=== PATIENT | male | born 1940 | race Caucasian/White ===

== ENCOUNTER → 2024-10-13 08:11 | Outpatient (REF) | payer MEDICARE, BC, SELFPAY ==
--- NOTE | 2024-10-13 09:00 | CARDSERVLU ---
Echocardiogram with [facility] completed after protocol screening completed. Allergies verified.
Patent IV site: ____Left AC_
IV site flushed with 0.9% NaCl pre and post administration.
Diluted bolus method utilized to enhance visualization of ventricular gonzalez.
Total volume given: _2.0__ mL
Patient tolerated all procedures well without complications.
== END ==
LOC: RCS 08:11
PROVIDERS: ATTENDING PHYSICIAN Nurse Practitioner
DX: R06.02 Shortness of breath (principal)
CPT/HCPCS: 93306; Q9950

== ENCOUNTER → 2024-10-15 06:51 | Outpatient (REF) | payer MEDICARE, BC, SELFPAY ==
[2024-10-15 07:30] VITALS: BP 101/66; BP_SYST 90
[2024-10-15 08:00] VITALS: BP 118/73; BP_SYST 89
[2024-10-15 08:35] LABS: Body Fluid pH 7.17
[2024-10-15 08:37] VITALS: BP 118/73
[2024-10-15 09:05] LABS: Body Fluid Polymorphonuclear 10.9 %; Body Fluid WBC 1342 /CUMM
[2024-10-15 09:06] LABS: Body Fluid Mononuclear 89.1 %
[2024-10-15 09:07] LABS: Body Fluid Second Tech EM
[2024-10-15 12:46] LABS: Body Fluid Glucose 86 mg/dl; Body Fluid Protein 3.5 g/dl
[2024-10-15 12:47] LABS: Body Fluid LDH 300 U/L
== END ==
LOC: RADI 06:51
PROVIDERS: ATTENDING PHYSICIAN Internal Medicine; REFERRING PHYSICIAN Internal Medicine
DX: J90 Pleural effusion, not elsewhere classified (principal)
CPT/HCPCS: 88305; 32555; 71045; 82945; 83615; 83986; 84157; 87015; 87070; 87102; 87116; 87205; 87206; 88112; 89051

== ENCOUNTER → 2024-10-22 10:27 | Outpatient (REF) | payer MEDICARE, BC, SELFPAY | LOC: HWRAD 10:27 | PROVIDERS: ATTENDING PHYSICIAN Internal Medicine; FAMILY PHYSICIAN Internal Medicine; REFERRING PHYSICIAN Internal Medicine | DX: J90 Pleural effusion, not elsewhere classified (principal) | CPT/HCPCS: 71250 ==

== ENCOUNTER 2024-10-24 12:03 | Inpatient (IN) | payer MEDICARE, BC, SELFPAY ==
[2024-10-24] VITALS (16 sets, daily range): BP systolic 80–140; BP diastolic 62–92; BMI 25.6; BMI 25.1
--- NOTE | 2024-10-24 08:41 | ED.GENMED ---
History of Present Illness
General
Chief Complaint: Breathing Problem
Source: patient
Exam Limitations: none
Time Seen by Provider: 10/24/24 08:24
Nursing documentation reviewed up to this point in time: agreed with
History of Present Illness
History of Present Illness:
Note:
CHIEF COMPLAINT(S)
Shortness of breath
HISTORY OF PRESENT ILLNESS
An 84-year-old male presents with shortness of breath. The patient underwent a thoracentesis approximately one week prior, during which fluid was aspirated from the left pleural space. A follow-up CT scan was performed two days ago as part of a
reassessment plan. According to the recent contact from the physician, there is evidence of infection in the aspirated fluid. The patient is experiencing a productive cough and dyspnea on exertion. He reports no recent fevers. Hospital admission is
planned for further drainage of the pleural fluid and initiation of antibiotic therapy.
SOCIAL HISTORY
The patient reports a history of smoking but has since quit. He denies current alcohol consumption, having ceased since his bypass surgery.
MEDICATIONS
- Metformin
- Losartan
- Furosemide
- Amlodipine
- Jcdzrcejmqdj-ncjvkoqgrt-qxvfjvymqsi (administered via inhalation)
PLAN
- Admit the patient to the hospital for chest tube placement for drainage of pleural effusion.
- Obtain blood tests to evaluate infection and overall health status.
DIFFERENTIAL DIAGNOSIS
The Differential Diagnosis includes, in no particular order and is not limited to:
- Pleural effusion
- Pneumonia
- Congestive heart failure
- Pulmonary embolism
- Chronic obstructive pulmonary disease exacerbation
- Lung cancer
- Empyema
- Tuberculosis
- Interstitial lung disease
- Acute respiratory distress syndrome
Note:
CARE-UPDATE
10/24/24 - 09:02
Awaiting pleural fluid studies before starting antibiotics as per pulmonology recommendation. Interventional radiology to place chest tube for fluid collection, and pleural fluid studies ordered. Hospitalists will proceed with admission.
Disposition:
ASSESSMENT
Shortness of breath likely due to pleural effusion with suspected infection.
PLAN
Admit the patient to the hospital for further evaluation and management, including chest tube placement and initiation of antibiotic therapy. Obtain blood tests to evaluate for infection and assess overall health status.
MEDICATION RECONCILIATION
Current medications include Metformin, Losartan, Furosemide, Amlodipine, and inhaled Zgoatfzqrvjd-nmdgbtqpoc-jxjjewlbnbv.
MEDICAL DECISION MAKING
1. Number & Complexity of Problems: Chronic conditions affecting care include pleural effusion, past smoking history, and recent thoracentesis. Differential diagnoses considered are pneumonia, congestive heart failure, pulmonary embolism, chronic
obstructive pulmonary disease exacerbation, lung cancer, empyema, tuberculosis, interstitial lung disease, and acute respiratory distress syndrome.
2. Data Reviewed: Relevant imaging and lab tests were performed, including a CT scan and pleural fluid studies. Awaiting pleural fluid study results before initiating antibiotics as per pulmonology recommendations.
3. Risk: Consideration of hospital admission due to complexity and risk of infection associated with pleural effusion.
PATHOLOGIES TO CONSIDER
- Empyema
- Pulmonary embolism
- Congestive heart failure
- Lung cancer
- Acute respiratory distress syndrome
Past History
Past History
ED Past Medical History: Arrthythmia, CAD, HTN, Hypercholesterolemia and NIDDM
ED Past Surgical History: Cardiac
Phy Exam
Physical Exam
Physical Exam:
Physical Exam
General: no apparent distress, not acutely ill
Neck: supple. no meningeal signs. normal posterior pharynx
Heart: s1/s2 regular rate and rhythm, no murmur. equal radial
pulses.
HEENT: Pupils equal round reactive to light, EOMI
Lungs: no acute respiratory distress. Rhonchi bilaterally
Abdomen: normal bowel sounds. not tender. no CVAT
Neuro: alert and oriented. no focal neurological deficits cranial nerves II through XII intact
Skin: no rash
Psychiatric: well kept. interactive and cooperative
Extremities: no edema. no calf tenderness. negative homans. good distal pulses
Scores
Heart Failure Risk
Heart Failure Risk Score: Not Applicable
Course
Orders/Labs/Results
Orders:
Orders
10/24/24 08:33
Cardiac Monitoring- Treatment ONCE
IV Insert/Care/Rem.- Treatment PRN
Pulse Ox/cont/shift [RESP] Stat
Quantity: 1
10/24/24 08:51
Complete Blood Count/With Diff Urgent
Comprehensive Metabolic Panel Urgent
Lactic Acid Q4H
Comment: CANCEL 2nd LACTIC ACID IF 1st LACTIC ACID IS LESS THAN 2
Blood Culture Q30M
LAYLA Source: Blood/Venous
Specimen Description:
10/24/24 08:56
Body Fluid Cell Count Routine
What is the Body Fluid: pleural fluid
Comment: post procedure
Body Fluid LDH Routine
Fluid Source: Pleural
Body Fluid pH Routine
Fluid Source: Pleural
10/24/24 08:57
Body Fluid Glucose Routine
Fluid Source: Pleural
Body Fluid Protein Routine
Fluid Source: Pleural
10/24/24 08:58
Acid Fast Culture & Smear Routine
LAYLA Source: Pleural Fluid
Specimen Description:
Comment: post procedure
Fluid Culture with Gram Stain Routine
LAYLA Source: Pleural Fluid
Specimen Description:
Comment: post procedure
Fungus Culture Routine
LAYLA Source: Pleural Fluid
Specimen Description:
Fungus Smear Routine
LAYLA Source: Pleural Fluid
Specimen Description:
Gram Stain Routine
LAYLA Source: Pleural Fluid
Specimen Description:
Comment: POST PROCEDURE
10/24/24 09:14
Consult Interventional Radiology [IRAD CONSULT] Urgent
Consulting Provider: Pawan Jett
Was physician already notified: Yes
Procedure being ordered, including laterality if applicable: left side thoracentesis
Acknowledgement that appropriate orders are entered: Yes
10/24/24 09:55
IRAD CONSULT Routine
Consulting Provider: Pawan Jett
Was physician already notified: Yes
Procedure being ordered, including laterality if applicable: Left sided chest tube and tPA/DNAse
Acknowledgement that appropriate orders are entered: Yes
10/24/24 09:56
IRAD Cytology Routine
Source: Pleural Fluid, Left
Clinical Impression: Idiopathic effusion
10/24/24 11:33
Code Status As Directed
Resuscitation Status: Full Code
Docusate W/Senna [Senokot-S] 1 tablet PO BIDPRN PRN
Polyethylene Glycol Powder [Miralax] 17 grams PO DAILYPRN PRN
Activity As Directed
Activity Level: As Tolerated
Vital Signs As Directed
Frequency: Per unit guidelines
10/24/24 11:34
Pneumatic Compression Sleeves As Directed
Type: Knee high
DX Deep Vein Thrombosis Video Routine
10/24/24 11:41
NT-proBNP Urgent
Blood Culture Q30M
LAYLA Source: Blood/Venous
Specimen Description:
10/24/24 11:42
Admit/Transfer Patient As Directed
Co-Sign Provider:
Level of Care: Inpatient admission
Assign to:: Medical/Surgical
Physician / Group: Hospitalist: Storm
Diagnosis: Left empyema
Reason for Hospitalization: Left empyema
Expected length of stay greater than two midnights?: Yes
ELOS- Estimated Length of Stay in days: 2
I certify the patient meets the requirements for IP care: Yes
10/24/24 11:43
PRN Pain Medication Management As Directed
May give lesser potent ordered pain med per pt: Yes
preference::
Protocol:: Medication orders for pain may be administered in a
manner that supports deferring to patient preference
when the pt is:
- Requesting an ordered lesser potent pain medication.
Least to most potent pain medications are defined
as: acetaminophen < NSAID < tramadol < opioids
(morphine, oxycodone, hydromorphone).
- Requesting a lesser dose of the same medication IF
ORDERED.
- Requesting a less intrusive route of administration
if both routes are prescribed by the provider (PO <
IV).
10/24/24 11:46
PULMONARY CONSULT Routine
Consulting Provider: Vincenzo Bermudez
Was physician already notified: Yes
Reason for consult: L empyema
10/24/24 11:47
Ot Eval And Treat Routine
Pt Eval And Treat Routine
Activity Level: As Tolerated
10/24/24 Dinner
Cholesterol Lowering
Cholesterol Lowering: Sodium, 2 Gram
10/24/24 16:00
Gabapentin [Neurontin] 100 mg PO TID
10/25/24 06:00
BMP [Basic Metabolic Panel] IN AM
CBC/With Diff [Complete Blood Count/With Diff] IN AM
10/26/24 06:00
BMP [Basic Metabolic Panel] IN AM
CBC/With Diff [Complete Blood Count/With Diff] IN AM
10/27/24 06:00
BMP [Basic Metabolic Panel] IN AM
CBC/With Diff [Complete Blood Count/With Diff] IN AM
Abnormal Lab Results
10/24/24
08:51
RBC 4.50 L 10^6/uL
(4.70-6.10)
Hgb 12.8 L g/dL
(13.0-18.0)
MCHC 32.7 L g/dL
(33.0-37.0)
RDW 15.9 H %
(11.5-14.5)
Lymphocytes % 18.7 L %
(20.5-51.1)
Glucose 162 H mg/dl
(70-99)
10/24/24 08:51
10/24/24 08:51
Vital Signs
Initial and Last Documented VS:
Initial Vital Signs
Temp Pulse Resp BP Pulse Ox
97.6 F 93 24 116/66 97
10/24/24 08:19 10/24/24 08:19 10/24/24 08:19 10/24/24 08:19 10/24/24 08:19
Last Documented Vital Signs
Temp Pulse Resp BP Pulse Ox
97.7 F 90 21 119/79 98
10/24/24 12:55 10/24/24 12:55 10/24/24 12:55 10/24/24 12:55 10/24/24 12:55
*Pulse Oximetry
SaO2: 97
Oxygen Mode of Delivery: Room air
Patient hypoxic: no
*Critical Care Note
Total Time (30-74mins, 75-104mins- exclusive of procedures): Not Applicable
ED Attending Note
-
Portions of this chart may have been created with voice recognition software.� Occasional wrong word or��sound alike� substitutions may have occurred due to the inherent limitations of voice recognition software.
Discharge Plan
Departure
Patient Disposition: Admit
Date of Disposition: 10/24/24
Time of Disposition: 10:29
Admit to: Telemetry
Presentation/result/management discussed w/ accepting MD/DO: Hospitalist
Patient with high blood pressure during this ER visit?: No
Condition: Good
Discharge Problem:
Pleural effusion on left
Interventions
Interventions:
*Risk Screen - Suicide Last Done: 10/24/24 08:19
*General Assessment Last Done: 10/24/24 09:00
*Neglect/Abuse Screening Last Done: 10/24/24 08:19
*ED- Fall Risk Assessment Last Done: 10/24/24 09:00
*ED COVID-19 Vaccine History Last Done: 10/24/24 09:00
[2024-10-24 09:07] LABS: % Basophils 1.2 % (0-2); % Eosinophils 1.7 % (0-6); % Immature Granulocytes 0.4 % (0-0.5); % Lymphocytes 18.7 % (20.5-51.1); % Monocytes 6.7 % (1.7-9.3); % Neutrophils 71.3 % (42.2-75.2); Absolute Basophils 0.1 10^3/uL (0-0.2); Absolute Eosinophils 0.1 10^3/uL (0-0.7); Absolute Lymphocytes 1.5 10^3/uL (1.2-3.4); Absolute Monocytes 0.5 10^3/uL (0.1-0.6); Absolute Neutrophils 5.6 10^3/uL (1.4-6.5); Hematocrit 39.1 % (39.0-52.0); Hemoglobin 12.8 g/dL (13.0-18.0); Mean Corp Hgb Conc. 32.7 g/dL (33.0-37.0); Mean Corpuscular Hgb 28.4 pg (27.0-31.0); Mean Corpuscular Volume 86.9 fL (80.0-94.0); Mean Platelet Volume 8.8 fL (7.4-10.4); Nucleated Red Blood Cells % 0 % (-); Platelet Count 353 10^3/uL (130-400); Red Cell Dist. Width 15.9 % (11.5-14.5); White Blood Cell Count 7.8 10^3/uL (4.8-10.8)
[2024-10-24 09:19] LABS: Lactic Acid 1.7 mmol/L (0.7-2.0)
[2024-10-24 09:21] LABS: ALT (SGPT) 15 U/L (0-50); AST (SGOT) 17 U/L (17-59); Albumin 4.1 g/dl (3.5-5.0); Alkaline Phosphatase 75 U/L (38-126); Blood Urea Nitrogen 18 mg/dl (9-20); Calcium 9.1 mg/dl (8.4-10.2); Carbon Dioxide 27 mmol/L (22-30); Chloride 103 mmol/L (98-107); Estimated Creatinine Clearance 79 ml/min; Glucose 162 mg/dl (70-99); Potassium 4.7 mmol/L (3.5-5.1); Sodium 138 mmol/L (135-145); Total Bilirubin 0.8 mg/dl (0.2-1.3); Total Protein 7.6 g/dl (6.3-8.2); eGFR > 60.00
--- NOTE | 2024-10-24 11:49 | HPS.HSE ---
Family Physician
-
Family Physician: Linn Walsh
Chief Complaint
-
Shortness of breath
History of Present Illness
Mr. Mckenzie is an 84-year-old male with a medical history of COPD (last PFT at [facility] in February 2024 showed severe obstruction and moderately severe restriction), CAD (status post CABG x4 on 08/25/22), pericardial effusion (after CABG,
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
arrhythmia (patient wore Holter monitor for a week, A-fib?, not on anticoagulation) who presents now with ongoing shortness of breath worse with exertion. He had a recent thoracentesis for recurrent left lower effusion on 10/15/2024. Repeat CT
imaging in the outpatient setting on 10/22 showed small to moderate left partially loculated pleural effusions with some concern for infection. He has no new symptoms other than his ongoing shortness of breath. Denies fevers, headaches,
palpitations, abdominal pain, nausea or vomiting. He was sent to the emergency department for further evaluation and management.
In the ED, he has remained hemodynamically stable. Remains afebrile and without leukocytosis. He is breathing comfortably and saturating appropriately on room air at rest. Labs are generally unremarkable. He has been admitted for treatment of
possible empyema.
Medical History
Past Medical History
Past Medical History: Reports Other
Additional Past Medical History:
COPD (last PFT at [facility] in February 2024 showed severe obstruction and moderately severe restriction), CAD (status post CABG x4 on 08/25/22), pericardial effusion (after CABG, resolved after pericardiocentesis), chronic heart failure
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
not on anticoagulation)
Past Surgical History: Reports Other
Additional Past Surgical History:
CABG x 4 on 08/25/2022, pericardiocentesis
Social History
Tobacco: Former Smoker (3035 pack years, quit 1989)
Alcohol: Occasional
Drug: None
Personal:
Living: With Family
Family History
Family History: Not pertinent
Allergies / Home Medications
Allergies reflects when Allergies were last updated in [facility].
Home Medications with original date entered in [facility]
Allergy/Medication List:
Allergies
Allergy/AdvReac Type Severity Reaction Status Date / Time
Sulfa (Sulfonamide Allergy childhood-u Verified 10/24/24 08:18
Antibiotics) nknown
Home Medications
finasteride 5 mg tablet 5 mg PO DAILY Urinary issue #30 tabs 09/01/22
aspirin 81 mg tablet,delayed release 81 mg PO DAILY Blood Clot Prevention/Tx 10/15/24
cyanocobalamin (vitamin B-12) 1,000 mcg tablet (Vitamin B-12) 1,000 mcg PO DAILY Supplement 10/15/24
fluticasone fur. 100 mcg-umeclid 62.5 mcg-vilant 25 mcg inhalat.powder (Trelegy Ellipta) 1 inh inhalation R DAILY Lung/Breathing Issues 10/15/24
atorvastatin 40 mg tablet 40 mg PO QPM High Cholesterol 10/24/24
furosemide 40 mg tablet 40 mg PO Q48H Fluid Retention/Swelling 10/24/24
metformin 500 mg tablet 500 mg PO BID@0800,1700 Diabetes 10/24/24
Review of Systems
-
History Source: Patient
A 12 point ROS was completed and negative except as noted: Yes
Respiratory: Reports Cough and Other (Dyspnea on exertion)
Neurological: Reports Other (Bilateral lower extremity neuropathy)
Physical Exam
Vital Signs
Vital Signs
Temp Pulse Resp BP Pulse Ox
97.6 F 78 18 107/62 97
10/24/24 08:19 10/24/24 09:30 10/24/24 09:01 10/24/24 09:00 10/24/24 09:30
Physical Exam
General: No Apparent Distress
Laboratory Results
-
10/24/24 08:51
10/24/24 08:51
Laboratory Results
Lactic Acid Cancelled 10/24/24 12:45
Total Bilirubin 0.8 mg/dl (0.2-1.3) 10/24/24 08:51
AST 17 U/L (17-59) 10/24/24 08:51
ALT 15 U/L (0-50) 10/24/24 08:51
Alkaline Phosphatase 75 U/L (38-126) 10/24/24 08:51
Impression/Plan
-
General: No Apparent Distress, Comfortable and Conversant
HEENT: NormoCephalic, Moist mucous membranes, Atraumatic
Respiratory: Non Labored Respirations, decreased breath sounds left base
Cardiac: S1/S2 and Regular Rhythm; No Rub or Gallop
GI: Soft, Non Tender, Non Distended and Normal Bowel Sounds
Musculoskeletal: No Edema, no deformity
Skin: Warm and dry
: NO Friedman
Neuro: Awake, Alert, Nonfocal/grossly intact
Psych: Calm and Intact Judgment/Insight
Mr. Mckenzie is an 84-year-old male with a medical history of COPD (last PFT at [facility] in February 2024 showed severe obstruction and moderately severe restriction), CAD (status post CABG x4 on 08/25/22), pericardial effusion (after CABG,
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
arrhythmia (patient wore Holter monitor for a week, A-fib?, not on anticoagulation) who presents now with ongoing shortness of breath worse with exertion. He had a recent thoracentesis for recurrent left lower effusion on 10/15/2024. Repeat CT
imaging in the outpatient setting on 10/22 showed small to moderate left partially loculated pleural effusions with some concern for infection. He has no new symptoms other than his ongoing shortness of breath. Denies fevers, headaches,
palpitations, abdominal pain, nausea or vomiting. He was sent to the emergency department for further evaluation and management.
In the ED, he has remained hemodynamically stable. Remains afebrile and without leukocytosis. He is breathing comfortably and saturating appropriately on room air at rest. Labs are generally unremarkable. He has been admitted for treatment of
possible empyema.
Loculated left pleural effusions:
- Suspect empyema
- Tentative plan for IR pleural drain placement, will hold off on antibiotics until fluid has been collected
- Pulmonology consult
- Currently not requiring oxygen, breathing comfortably on room air at rest
COPD:
- Currently without exacerbation
- Reportedly previous PFTs in February 2024 showed severe obstruction and moderately severe restriction
- Continue scheduled inhalers with additional as needed
Lower extremity neuropathy:
- Bilateral, never treated
- Suspect secondary to his diabetes
- Will start low-dose gabapentin and monitor
NIDDM:
- On metformin 500 mg p.o. twice daily at home which we will continue
- Check hemoglobin A1c
- Suspect his reported neuropathy is related to his diabetes
CAD:
- History of CABG x 4 on 08/25/2022, postoperative pericardial effusion status post pericardiocentesis
- Currently stable
- Will resume daily aspirin after thoracentesis/drain placement continue high intensity statin
CHF:
- Currently compensated
- Appears to be preserved ejection fraction per echocardiograms in chart
- Continue Lasix 40 mg p.o. every 48 hours which is his outpatient regimen
- Does not appear to be on a beta-alethea or afterload reduction
- Follows with Dr. Mariscal at [facility] cardiology
DVT prophylaxis: SCDs
CODE STATUS: Full code
Total time spent on today's encounter was 60 minutes
--- NOTE | 2024-10-24 12:25 | CM ---
CM reviewed chart and met with pt bedside in ED. Currently lives with his at their daughter's home, multistory home, [address]. Pt and are in the process of moving to [facility] [place] apt[place]
Independent at baseline for ADLs, personal care and ambulation. Uses single point cane for ambulation, also has rollator.
No hx VN, has been to [facility] for STR.
PCP: Linn Walsh
Pharmacy: Will use [facility] at [facility].
Discharge plan: Anticipate home pending ongoing medical evaluation.
[2024-10-24 12:37] LABS: NT-proBNP 431 pg/ml
--- NOTE | 2024-10-24 14:35 | W.PN.UPDATE ---
Update Note
Progress Note Update
-14F left chest tube placed using US and fluoro.
-Dark bloody fluid aspirated, not overtly purulent or turbid in appearance. Given bloody nature of the fluid, pleural lysis not performed today. Will monitor output, check CXR in the am.
--- NOTE | 2024-10-24 14:49 | CON.PUL ---
Consultation
Consultation Request
Date/Time Consultation Requested: 10/24/2024
Date/Time Consultation Performed: 10/24/2024
Requesting Provider: Orlando Campos
Performing Provider: Vincenzo Bermudez
Reason for Consultation: Pleural effusion
Medical History
-
Chief Complaint: Shortness of breath
History of Present Illness:
Patient is a very pleasant 84-year-old gentleman who presents to emergency room after being referred from pulmonary clinic for concern of empyema. Patient had coronary artery bypass graft performed in 08/[address] scan from postop time showed a
trace right-sided and moderate left-sided pleural effusion. Over the last year patient has experienced increased exertional dyspnea and in [place] was noted to have left-sided pleural effusion and had a thoracentesis performed. Patient reports
about 800 mL of fluid was removed it led to significant discomfort and pain postprocedure requiring overnight stay. He transitioned his care to [place] and was seen at [facility] recently. Patient was sent for a follow-up thoracentesis for fluid
analysis and had about 900 mL bloody fluid removed on 10/15. Cytology and culture stayed negative. Patient had a follow-up CT scan after procedure which showed some air in the pleural space as well as loculated effusions with pleural thickening
concerning for infection. Patient was referred to emergency room for further evaluation. Pulmonary consultation was requested for further input.
Patient denies any fever, chills, cough or expectoration. Noted to have normal WBC count and afebrile along with hemodynamic stability.
Past Medical History
Past Medical History: Reports Other
Additional Past Medical History:
COPD (last PFT at [facility] in February 2024 showed severe obstruction and moderately severe restriction), CAD (status post CABG x4 on 08/25/22), pericardial effusion (after CABG, resolved after pericardiocentesis), chronic heart failure
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
not on anticoagulation)
Past Surgical History: Reports Other
Additional Past Surgical History:
CABG x 4 on 08/25/2022, pericardiocentesis
Social History
Tobacco: Former Smoker (3035 pack years, quit 1989)
Alcohol: Occasional
Drug: None
Personal:
Living: With Family
Family History
Family History: Not pertinent
Allergies / Home Medications
Allergies reflects when Allergies were last updated in [facility].
Allergies / Home Medications
Allergies
Allergy/AdvReac Type Severity Reaction Status Date / Time
Sulfa (Sulfonamide Allergy childhood-u Verified 10/24/24 08:18
Antibiotics) nknown
Home Medications
�Medication �Instructions �Recorded �Confirmed �Last Taken �Type
finasteride 5 mg tablet 5 mg PO DAILY Urinary issue #30 09/01/22 10/24/24 10/24/24 Rx
tabs
aspirin 81 mg tablet,delayed 81 mg PO DAILY Blood Clot 10/15/24 10/24/24 10/24/24 History
release Prevention/Tx
cyanocobalamin (vitamin B-12) 1,000 mcg PO DAILY Supplement 10/15/24 10/24/24 10/24/24 History
1,000 mcg tablet (Vitamin B-12)
fluticasone fur. 100 mcg-umeclid 1 inh inhalation R DAILY 10/15/24 10/24/24 10/24/24 History
62.5 mcg-vilant 25 mcg Lung/Breathing Issues
inhalat.powder (Trelegy Ellipta)
atorvastatin 40 mg tablet 40 mg PO QPM High Cholesterol 10/24/24 10/24/24 10/23/24 History
furosemide 40 mg tablet 40 mg PO Q48H Fluid 10/24/24 10/24/24 10/24/24 History
Retention/Swelling
metformin 500 mg tablet 500 mg PO BID@0800,1700 Diabetes 10/24/24 10/24/24 10/24/24 History
Review of Systems
-
Hematologic/Lymphatic: Other (All 14 systems reviewed and negative except as stated above in the history of present illness.)
Vitals / Labs / Diagnostic Testing
Vital Signs
Temp Pulse Resp BP Pulse Ox
98.1 F 82 19 126/77 97
10/24/24 14:10 10/24/24 14:43 10/24/24 14:43 10/24/24 14:43 10/24/24 14:40
Lab Data
10/24/24 08:51
10/24/24 08:51
Diagnostic Testing:
Physical Exam
-
HEENT: Normocephalic
Cardiovascular: S1/S2
Respiratory: Clear and Other (Few rhonchi in the left lower lobe.)
GI: Soft and Non Distended
Neurology: Awake and Alert
Skin: Warm
General: Comfortable
Assessment
-
#1. Complex loculated left-sided pleural effusion with pleural thickening.
- Considering gas noted within the left pleural collection, concern for empyema, however with trapped lung, might have air due to ex-vacuo or related to recent instrumentation
- Pleural thickening noted, patient might have some degree of underlying trapped lung since 08/2022 when patient had CABG. Review of prior CT scan from 08/2022 suggests a trace right and moderate left-sided pleural effusion post CABG. Presence of
pain after first thoracentesis also points were possible lung entrapment.
- Discussed with IR service, plan for left-sided chest tube placement and initiation of tPA/DNase in view of loculations unless pleural fluid noted to be particularly bloody. Send pleural fluid for LDH, protein, Gram stain and culture sensitivity
including pH and glucose.
- Further recommendations post chest tube placement and after analysis of pleural fluid
- Draw blood cultures, initiate antibiotics after pleural fluid sampling, IV Unasyn
- Patient is afebrile, has normal WBC count. Will follow-up on pleural fluid and blood cultures. The small amount of air noted might be related to recent instrumentation, possible pneumo ex vacuo with trapped physiology rather than active
infection. If all cultures stay negative, will favor discontinuing antibiotic and monitor.
- Follow-up chest x-ray in a.m.
#2. H/o COPD, severe obstruction with moderate diffusion deficit
- Patient quit smoking 35 years ago.
- Currently uses Trelegy at home with as needed albuterol. Patient reports rare use of albuterol since he has started Trelegy.
#3. H/o CHF
- Clinically appears euvolemic, does not appear to to be decompensated
- BNP near normal
- Continue Lasix
#4. Dyspnea with exertion.
- Appears to be multifactorial due to underlying severe COPD, diffusion impairment, CHF, deconditioning.
- On review of his prior imaging from August [address] scan, I do not think the pleural effusion is the primary etiology of his shortness of breath.
Other medical diagnoses:
- CAD, s/p CABG (2022)
- NIDDM
- Neuropathy
Discussed with patient's and grandson at bedside.
Total time spent on this consultation/encounter __75__ minutes which includes review of history, physical exam, medications, laboratory data, personal review of imaging, extensive review of outpatient records, discussion with care team and
respiratory therapy.
Data:
CT Chest 10/2024: 1. Small right and hpjvh-eb-lxrtkmbd left partially loculated pleural effusions. As above, but show some adjacent mild soft tissue attenuation pleural thickening suggesting possible inflammatory process, including possible
empyema.
2. Small volume of gas within the aspect of the left pleural collection. There is also some adjacent increased attenuation. This could be related to small volume of gas and small amount of blood products related to recent thoracentesis. Infectious
etiology is also a consideration.
3. Bilateral compressive atelectasis. Near complete masslike atelectasis of the basal segments of the left lower lobe with appearance suggestive of rounded atelectasis.
4. Small amount of bilateral upper lobe fibrosis, nonspecific pattern.
5. Coronary and aortic atherosclerosis. Post coronary artery bypass.
ECHO 10/2024:
Normal biventricular size and systolic function without regional wall motion
abnormality. Estimated LVEF 60-65%.
Aortic sclerosis without stenosis.
Normal pericardium without effusion.
Pericardial drain for pericardial effusion, 09/2022:
[facility] 08/2022: 1: Normal left ventricular function with EF 62%
2: Triple-vessel CAD as described
3. Recommend evaluation for CABG with grafting of the LAD, D1, OM 3, RPL,+/- RPDA
4. We will add as needed sublingual nitroglycerin and the patient will restrict activities until revascularization has been accomplished
[2024-10-24 15:20] LABS: Body Fluid Glucose 79 mg/dl; Body Fluid LDH 360 U/L; Body Fluid Protein 3.4 g/dl
[2024-10-24 15:44] LABS: Body Fluid WBC 630 /CUMM
[2024-10-24 15:45] LABS: Body Fluid Mononuclear 88.9 %; Body Fluid Polymorphonuclear 11.1 %
[2024-10-24 16:19] LABS: Body Fluid Second Tech EYM
[2024-10-24] MEDS: NEURONTIN 100 MG PO ×2 (17:22→23:00)
[2024-10-24] MEDS: UNASYN IV ×2 (17:49→23:00)
[2024-10-24 18:40] LABS: Glucose - Point of Care 97 mg/dl (70-99)
[2024-10-24] MEDS: NOVOLOG FLEXPEN-LOW RESISTANCE SC (19:19)
--- NOTE | 2024-10-24 19:21 | PTCARENOTE ---
Pt received from ED and pulled over from stretcher to 317-2. L chest tube in place and hooked to -20 wall suction, draining bloody fluid. VSS. AAOx3 and very pleasant. Pt has no complaints of pain at this time. Admission and assessment completed by
this RN. Pt oriented to room, able to make needs known and call irizarry is within reach. POC ongoing.
[2024-10-24] MEDS: SYMBICORT 80/4.5 MCG INHALER 2 PUFF INH (19:56)
[2024-10-24] MEDS: LIPITOR 40 MG PO (20:35)
[2024-10-24] MEDS: GLUCOPHAGE 500 MG PO (20:38)
[2024-10-24] MEDS: TYLENOL 650 MG PO (20:38)
[2024-10-24 21:08] LABS: Glucose - Point of Care 153 mg/dl (70-99)
[2024-10-25 02:37] VITALS: BMI 25.2
[2024-10-25] MEDS: TYLENOL 650 MG PO ×2 (04:40→16:33)
[2024-10-25] MEDS: UNASYN IV ×4 (05:02→21:20)
[2024-10-25 07:00] VITALS: BP 129/74
[2024-10-25] MEDS: SPIRIVA RESPIMAT 2.5 MCG 2 PUFF INH (07:25)
[2024-10-25] MEDS: SYMBICORT 80/4.5 MCG INHALER 2 PUFF INH ×2 (07:25→20:36)
[2024-10-25 07:35] LABS: Glucose - Point of Care 115 mg/dl (70-99)
[2024-10-25] MEDS: NOVOLOG FLEXPEN-LOW RESISTANCE SC ×3 (07:41→16:37)
[2024-10-25 08:31] VITALS: BP 129/75; PULSE 82; PULSE 83; O2SAT 97
[2024-10-25 08:34] LABS: % Basophils 1.5 % (0-2); % Eosinophils 2.3 % (0-6); % Immature Granulocytes 0.5 % (0-0.5); % Lymphocytes 16.8 % (20.5-51.1); % Monocytes 9.3 % (1.7-9.3); % Neutrophils 69.6 % (42.2-75.2); Absolute Basophils 0.1 10^3/uL (0-0.2); Absolute Eosinophils 0.2 10^3/uL (0-0.7); Absolute Lymphocytes 1.4 10^3/uL (1.2-3.4); Absolute Monocytes 0.8 10^3/uL (0.1-0.6); Absolute Neutrophils 5.7 10^3/uL (1.4-6.5); Hematocrit 38.8 % (39.0-52.0); Hemoglobin 12.6 g/dL (13.0-18.0); Mean Corp Hgb Conc. 32.5 g/dL (33.0-37.0); Mean Corpuscular Hgb 28.1 pg (27.0-31.0); Mean Corpuscular Volume 86.4 fL (80.0-94.0); Nucleated Red Blood Cells % 0 % (-); Platelet Count 340 10^3/uL (130-400); Red Blood Cell Count 4.49 10^6/uL (4.70-6.10); Red Cell Dist. Width 15.8 % (11.5-14.5); White Blood Cell Count 8.2 10^3/uL (4.8-10.8)
[2024-10-25 08:59] LABS: Blood Urea Nitrogen 18 mg/dl (9-20); Calcium 8.8 mg/dl (8.4-10.2); Carbon Dioxide 25 mmol/L (22-30); Chloride 104 mmol/L (98-107); Estimated Creatinine Clearance 79 ml/min; Glucose 110 mg/dl (70-99); Potassium 4.6 mmol/L (3.5-5.1); Sodium 137 mmol/L (135-145); eGFR > 60.00
[2024-10-25] MEDS: PROSCAR 5 MG PO (09:04)
[2024-10-25] MEDS: NEURONTIN 100 MG PO ×3 (09:04→21:20)
[2024-10-25] MEDS: VITAMIN B-12 1000 MCG PO (09:04)
[2024-10-25] MEDS: GLUCOPHAGE 500 MG PO ×2 (09:04→16:34)
[2024-10-25 10:25] LABS: Glycohemoglobin (HgbA1c) 6.5 % (4.0-5.6)
--- NOTE | 2024-10-25 11:00 | CM ---
Patient seen at bedside on . CM spoke with patient who stated that he was doing well and he did not believe he needed any supports at home. Patient assessment recommending home health. CM will ask patient which agency he would like to have
referral. CM will continue to follow for discharge planning needs.
Plan; home to independent apartment with VN vs home with no needs pending patient choice
[2024-10-25 11:45] LABS: Glucose - Point of Care 174 mg/dl (70-99)
--- NOTE | 2024-10-25 13:17 | W.PN.HOSP.TC ---
Today's Communication/Plan
-
Assessment / Plan
Assessment / Plan
General: No Apparent Distress, Comfortable and Conversant
HEENT: NormoCephalic, Moist mucous membranes, Atraumatic
Respiratory: Non Labored Respirations, decreased breath sounds left base, left-sided chest tube with serosanguineous output
Cardiac: S1/S2 and Regular Rhythm; No Rub or Gallop
GI: Soft, Non Tender, Non Distended and Normal Bowel Sounds
Musculoskeletal: No Edema, no deformity
Skin: Warm and dry
: NO Friedman
Neuro: Awake, Alert, Nonfocal/grossly intact
Psych: Calm and Intact Judgment/Insight
Mr. Mckenzie is an 84-year-old male with a medical history of COPD (last PFT at [facility] in February 2024 showed severe obstruction and moderately severe restriction), CAD (status post CABG x4 on 08/25/22), pericardial effusion (after CABG,
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
arrhythmia (patient wore Holter monitor for a week, A-fib?, not on anticoagulation) who presents now with ongoing shortness of breath worse with exertion. He had a recent thoracentesis for recurrent left lower effusion on 10/15/2024. Repeat CT
imaging in the outpatient setting on 10/22 showed small to moderate left partially loculated pleural effusions with some concern for infection. He has no new symptoms other than his ongoing shortness of breath. Denies fevers, headaches,
palpitations, abdominal pain, nausea or vomiting. He was sent to the emergency department for further evaluation and management.
In the ED, he has remained hemodynamically stable. Remains afebrile and without leukocytosis. He is breathing comfortably and saturating appropriately on room air at rest. Labs are generally unremarkable. He has been admitted for treatment of
possible empyema.
Loculated left pleural effusions:
- Suspect empyema
- Left pleural catheter placed by IR yesterday 10/24, pleural lysis not performed due to sanguinous output
- Started on Unasyn, pleural fluid cultures pending
- Appreciate further guidance from pulmonology
- Currently not requiring oxygen, breathing comfortably on room air at rest
COPD:
- Currently without exacerbation
- Reportedly previous PFTs in February 2024 showed severe obstruction and moderately severe restriction
- Continue scheduled inhalers with additional as needed
Lower extremity neuropathy:
- Bilateral, never treated
- Suspect secondary to his diabetes
- Started off low-dose gabapentin with significant relief, will continue at discharge
NIDDM:
- On metformin 500 mg p.o. twice daily at home which we will continue
- Blood glucose fairly well-controlled, Hemoglobin A1c 6.5%
- Suspect his reported neuropathy is related to his diabetes, continue gabapentin
CAD:
- History of CABG x 4 on 08/25/2022, postoperative pericardial effusion status post pericardiocentesis
- Currently stable
- Will resume daily aspirin eventually after resolution of sanguinous pleural output, continue high intensity statin
CHF:
- Currently compensated
- Appears to be preserved ejection fraction per echocardiograms in chart
- Continue Lasix 40 mg p.o. every 48 hours which is his outpatient regimen
- Does not appear to be on a beta-alethea or afterload reduction
- Follows with Dr. Mariscal at [facility] cardiology
DVT prophylaxis: SCDs
CODE STATUS: Full code
Total time spent on today's encounter was 40 minutes
Anticipated Discharge: > 48 hours
Subjective/Interval History
-
Date of Service: October 25, 2024
Patient was seen and examined at bedside this morning. Left chest tube placement yesterday, pleural lysis not performed due to bloody output. Pleural fluid cultures pending.
Objective Data
-
Labs:
Laboratory Results
10/25/24
06:24
WBC 8.2
Hgb 12.6 L
Hct 38.8 L
Plt Count 340
Sodium 137
Potassium 4.6
Chloride 104
Carbon Dioxide 25
BUN 18
Creatinine 0.8
Glucose 110 H
Calcium 8.8
Vital Signs:
Vital Signs
Temp Pulse Resp BP Pulse Ox
98.5 F 87 18 129/74 96
10/25/24 07:00 10/25/24 07:28 10/25/24 07:28 10/25/24 07:00 10/25/24 07:28
I&O
10/24/24 10/25/24 10/26/24
06:59 06:59 06:59
Intake Total 220 / 220
Output Total 750 / 750
Balance -530 / -530
Review of Systems
-
History Source: Patient
All other systems: Reviewed and negative
Respiratory: Reports Pleurisy (Mild left-sided thoracic pain with deep inspiration)
Physical Exam
-
General: No Apparent Distress
--- NOTE | 2024-10-25 14:06 | W.PN.PUL3 ---
Today's Communication / Plan
-
- Transition to [facility]
- Follow-up chest x-ray in 4 hours
- Await pleural fluid cultures
Assessment
-
Patient is a very pleasant 84-year-old gentleman who presents to emergency room after being referred from pulmonary clinic for concern of empyema. Patient had coronary artery bypass graft performed in 08/[address] scan from postop time showed a
trace right-sided and moderate left-sided pleural effusion. Over the last year patient has experienced increased exertional dyspnea and in [place] was noted to have left-sided pleural effusion and had a thoracentesis performed. Patient reports
about 800 mL of fluid was removed it led to significant discomfort and pain postprocedure requiring overnight stay. He transitioned his care to [place] and was seen at [facility] recently. Patient was sent for a follow-up thoracentesis for fluid
analysis and had about 900 mL bloody fluid removed on 10/15. Cytology and culture stayed negative. Patient had a follow-up CT scan after procedure which showed some air in the pleural space as well as loculated effusions with pleural thickening
concerning for infection. Patient was referred to emergency room for further evaluation. Pulmonary consultation was requested for further input.
Patient denies any fever, chills, cough or expectoration. Noted to have normal WBC count and afebrile along with hemodynamic stability.
#1. Complex loculated left-sided pleural effusion with pleural thickening.
- S/p chest tube placement on 10/24. A total of around 800 sanguinous output noted so far
- Chest x-ray 10/25 shows thickened pleura without full lung expansion with now pneumothorax, suspect pneumothorax ex vacuo. Very suggestive of underlying trapped lung
- Patient might have some degree of underlying trapped lung since 08/2022 when patient had CABG. Review of prior CT scan from 08/2022 suggests a trace right and moderate left-sided pleural effusion post CABG. Presence of pain after first
thoracentesis also points were possible lung entrapment.
- Patient feels a sense of pull in left hemithorax likely related to suction in the setting of trapped lung. Transition to [facility], get a 4-hour follow-up chest x-ray
- Continue IV Unasyn, currently pleural fluid Gram stain and culture negative, blood cultures also negative.
- Patient is afebrile, has normal WBC count.
- Follow-up chest x-ray in a.m.
- Will continue pleural drainage over the weekend, thoracic surgery consult Sunday if persistent lung entrapment noted.
#2. H/o COPD, severe obstruction with moderate diffusion deficit
- Patient quit smoking 35 years ago.
- Currently uses Trelegy at home with as needed albuterol. Patient reports rare use of albuterol since he has started Trelegy.
#3. H/o CHF
- Clinically appears euvolemic, does not appear to to be decompensated
- BNP near normal
- Continue Lasix
#4. Dyspnea with exertion.
- Appears to be multifactorial due to underlying severe COPD, diffusion impairment, CHF, deconditioning.
- On review of his prior imaging from August [address] scan, I do not think the pleural effusion is the primary etiology of his shortness of breath.
Other medical diagnoses:
- CAD, s/p CABG (2022)
- NIDDM
- Neuropathy
Discussed with patient's and grand daughter at bedside.
Total time spent on this consultation/encounter __48__ minutes which includes review of history, physical exam, medications, laboratory data, personal review of imaging, extensive review of outpatient records, discussion with care team and
respiratory therapy.
Data:
CT Chest 10/2024: 1. Small right and [id number] left partially loculated pleural effusions. As above, but show some adjacent mild soft tissue attenuation pleural thickening suggesting possible inflammatory process, including possible
empyema.
2. Small volume of gas within the aspect of the left pleural collection. There is also some adjacent increased attenuation. This could be related to small volume of gas and small amount of blood products related to recent thoracentesis. Infectious
etiology is also a consideration.
3. Bilateral compressive atelectasis. Near complete masslike atelectasis of the basal segments of the left lower lobe with appearance suggestive of rounded atelectasis.
4. Small amount of bilateral upper lobe fibrosis, nonspecific pattern.
5. Coronary and aortic atherosclerosis. Post coronary artery bypass.
ECHO 10/2024:
Normal biventricular size and systolic function without regional wall motion
abnormality. Estimated LVEF 60-65%.
Aortic sclerosis without stenosis.
Normal pericardium without effusion.
Pericardial drain for pericardial effusion, 09/2022:
[facility] 08/2022: 1: Normal left ventricular function with EF 62%
2: Triple-vessel CAD as described
3. Recommend evaluation for CABG with grafting of the LAD, D1, OM 3, RPL,+/- RPDA
4. We will add as needed sublingual nitroglycerin and the patient will restrict activities until revascularization has been accomplished
Subjective Data
-
Date of Service:
Date of Service: October 25, 2024
Subjective:
Patient comfortably lying in bed in no acute distress, chest tube in place draining sanguinous output, no airleak noted.
Review of Systems
Genitourinary: Other (All 14 systems reviewed and negative except as stated above in the history of present illness.)
Objective Data
Data Reviewed
Vital Signs / I&O / Oxygen:
Vital Signs
Temp Pulse Resp BP Pulse Ox
98.5 F 87 18 129/74 96
10/25/24 07:00 10/25/24 07:28 10/25/24 07:28 10/25/24 07:00 10/25/24 07:28
Intake and Output
10/24/24 10/25/24 10/26/24
06:59 06:59 06:59
Intake Total 220 / 220
Output Total 750 / 750
Balance -530 / -530
SaO2 96
Physical Exam
General: Comfortable
HEENT: Normocephalic
Cardiovascular: S1-S2
Respiratory: Clear
GI: Soft and Non Distended
Neurology: Awake and Alert
Skin: Warm
Labs/Micro/Reports
Lab Data
10/25/24 06:24
10/25/24 06:24
Microbiology
10/24/24 11:41 Blood/Venous Blood Culture - Preliminary
No Growth in 24 hours- Final report to follow
10/24/24 14:27 Pleural Fluid Body Fluid Culture - Preliminary
No Growth After 18-24 Hours
10/24/24 14:27 Pleural Fluid Gram Stain - Preliminary
10/24/24 08:51 Blood/Venous Blood Culture - Preliminary
No Growth in 24 hours- Final report to follow
10/24/24 14:27 Pleural Fluid Fungal Culture - Preliminary
Culture in progress.
Positive cultures are reported as soon as detected.
Final report to follow in four to five weeks.
[2024-10-25 15:00] VITALS: BP 129/71
[2024-10-25 16:37] LABS: Glucose - Point of Care 118 mg/dl (70-99)
[2024-10-25] MEDS: LIPITOR 40 MG PO (18:01)
[2024-10-25 21:23] LABS: Glucose - Point of Care 97 mg/dl (70-99)
[2024-10-25 23:05] VITALS: BP 110/69
[2024-10-26] MEDS: UNASYN IV ×4 (03:15→21:56)
[2024-10-26 06:00] VITALS: BMI 24.8
[2024-10-26 06:59] LABS: Glucose - Point of Care 134 mg/dl (70-99)
[2024-10-26] MEDS: NOVOLOG FLEXPEN-LOW RESISTANCE SC ×3 (07:24→16:52)
[2024-10-26 07:29] VITALS: BP 110/65
[2024-10-26] MEDS: SPIRIVA RESPIMAT 2.5 MCG 2 PUFF INH (07:47)
[2024-10-26] MEDS: SYMBICORT 80/4.5 MCG INHALER 2 PUFF INH ×2 (07:48→18:21)
[2024-10-26 07:53] LABS: % Eosinophils 2.1 % (0-6); % Immature Granulocytes 0.3 % (0-0.5); % Lymphocytes 19.4 % (20.5-51.1); % Monocytes 9.4 % (1.7-9.3); % Neutrophils 67.8 % (42.2-75.2); Absolute Basophils 0.1 10^3/uL (0-0.2); Absolute Eosinophils 0.2 10^3/uL (0-0.7); Absolute Lymphocytes 1.7 10^3/uL (1.2-3.4); Absolute Monocytes 0.8 10^3/uL (0.1-0.6); Absolute Neutrophils 5.9 10^3/uL (1.4-6.5); Hematocrit 41.6 % (39.0-52.0); Hemoglobin 13.5 g/dL (13.0-18.0); Mean Corp Hgb Conc. 32.5 g/dL (33.0-37.0); Mean Corpuscular Hgb 28.4 pg (27.0-31.0); Mean Corpuscular Volume 87.4 fL (80.0-94.0); Mean Platelet Volume 9.2 fL (7.4-10.4); Nucleated Red Blood Cells % 0 % (-); Platelet Count 358 10^3/uL (130-400); Red Blood Cell Count 4.76 10^6/uL (4.70-6.10); Red Cell Dist. Width 15.9 % (11.5-14.5); White Blood Cell Count 8.7 10^3/uL (4.8-10.8)
[2024-10-26 08:10] LABS: Blood Urea Nitrogen 19 mg/dl (9-20); Calcium 8.9 mg/dl (8.4-10.2); Carbon Dioxide 24 mmol/L (22-30); Chloride 104 mmol/L (98-107); Estimated Creatinine Clearance 79 ml/min; Glucose 127 mg/dl (70-99); Potassium 4.5 mmol/L (3.5-5.1); Sodium 139 mmol/L (135-145); eGFR > 60.00
[2024-10-26] MEDS: PROSCAR 5 MG PO (09:07)
[2024-10-26] MEDS: LASIX 40 MG PO (09:07)
[2024-10-26] MEDS: VITAMIN B-12 1000 MCG PO (09:08)
[2024-10-26] MEDS: NEURONTIN 100 MG PO ×2 (09:08→12:20)
[2024-10-26] MEDS: SENOKOT-S 1 TABLET PO (09:08)
[2024-10-26] MEDS: GLUCOPHAGE 500 MG PO ×2 (09:12→15:42)
--- NOTE | 2024-10-26 10:36 | W.PN.HOSP.TC ---
Today's Communication/Plan
-
Assessment / Plan
Assessment / Plan
General: No Apparent Distress, Comfortable and Conversant
HEENT: NormoCephalic, Moist mucous membranes, Atraumatic
Respiratory: Non Labored Respirations, decreased breath sounds left base and periphery, left-sided chest tube to waterseal with serosanguineous output
Cardiac: S1/S2 and Regular Rhythm; No Rub or Gallop
GI: Soft, Non Tender, Non Distended and Normal Bowel Sounds
Musculoskeletal: No Edema, no deformity
Skin: Warm and dry
: NO Friedman
Neuro: Awake, Alert, Nonfocal/grossly intact
Psych: Calm and Intact Judgment/Insight
Mr. Mckenzie is an 84-year-old male with a medical history of COPD (last PFT at [facility] in February 2024 showed severe obstruction and moderately severe restriction), CAD (status post CABG x4 on 08/25/22), pericardial effusion (after CABG,
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
arrhythmia (patient wore Holter monitor for a week, A-fib?, not on anticoagulation) who presents now with ongoing shortness of breath worse with exertion. He had a recent thoracentesis for recurrent left lower effusion on 10/15/2024. Repeat CT
imaging in the outpatient setting on 10/22 showed small to moderate left partially loculated pleural effusions with some concern for infection. He has no new symptoms other than his ongoing shortness of breath. Denies fevers, headaches,
palpitations, abdominal pain, nausea or vomiting. He was sent to the emergency department for further evaluation and management.
In the ED, he has remained hemodynamically stable. Remains afebrile and without leukocytosis. He is breathing comfortably and saturating appropriately on room air at rest. Labs are generally unremarkable. He has been admitted for treatment of
possible empyema.
Loculated left pleural effusions:
- Left pleural catheter placed by IR 10/24, pleural lysis not performed due to sanguinous output
- Started on Unasyn, pleural fluid cultures with no growth to date
- He has remained afebrile and without leukocytosis, low suspicion for infectious etiology at this point, low threshold to discontinue antibiotics
- Will follow-up repeat chest x-ray
- Appreciate further guidance from pulmonology, will discuss duration of chest tube and timing of removal
- Currently not requiring oxygen, breathing comfortably on room air at rest
COPD:
- Currently without exacerbation
- Reportedly previous PFTs in February 2024 showed severe obstruction and moderately severe restriction
- Continue scheduled inhalers with additional as needed
Lower extremity neuropathy:
- Bilateral, never treated
- Suspect secondary to his diabetes
- Started on low-dose gabapentin with significant relief, will continue at discharge
NIDDM:
- On metformin 500 mg p.o. twice daily at home which we will continue
- Blood glucose fairly well-controlled, Hemoglobin A1c 6.5%
- Suspect his reported neuropathy is related to his diabetes, continue gabapentin
CAD:
- History of CABG x 4 on 08/25/2022, postoperative pericardial effusion status post pericardiocentesis
- Currently stable
- Will resume daily aspirin eventually after resolution of sanguinous pleural output, continue high intensity statin
CHF:
- Currently compensated
- Appears to be preserved ejection fraction per echocardiograms in chart
- Continue Lasix 40 mg p.o. every 48 hours which is his outpatient regimen
- Does not appear to be on a beta-alethea or afterload reduction
- Follows with Dr. Mariscal at [facility] cardiology
DVT prophylaxis: SCDs
CODE STATUS: Full code
Total time spent on today's encounter was 40 minutes
Anticipated Discharge: 24 - 48 hours
Subjective/Interval History
-
Date of Service: October 26, 2024
Patient was seen and examined at bedside's morning. Left chest tube to waterseal. Breathing comfortably, no current pleuritic pain with inspiration.
Objective Data
-
Labs:
Laboratory Results
10/26/24
06:28
WBC 8.7
Hgb 13.5
Hct 41.6
Plt Count 358
Sodium 139
Potassium 4.5
Chloride 104
Carbon Dioxide 24
BUN 19
Creatinine 0.8
Glucose 127 H
Calcium 8.9
Vital Signs:
Vital Signs
Temp Pulse Resp BP Pulse Ox
97.9 F 83 16 110/65 96
10/26/24 07:29 10/26/24 07:29 10/26/24 07:29 10/26/24 07:29 10/26/24 07:29
I&O
10/25/24 10/26/24 10/27/24
06:59 06:59 06:59
Intake Total 220 / 220 1200 / 1200
Output Total 750 / 750 1350 / 1350
Balance -530 / -530 -150 / -150
Review of Systems
-
History Source: Patient
All other systems: Reviewed and negative
Physical Exam
-
General: No Apparent Distress
[2024-10-26] MEDS: TYLENOL 650 MG PO (12:20)
[2024-10-26 12:24] LABS: Glucose - Point of Care 174 mg/dl (70-99)
--- NOTE | 2024-10-26 14:29 | CONSULT.CT ---
Consultation
-
Date/Time Consultation Requested: 10/26/24
Date/Time Consultation Performed: 10/26/24
Requesting Provider: Vincenzo Bermudez
Performing Provider: conchis GIFFORD for Soraya Wright MD
Reason for Consultation: recommendations for Left empyema
Patient History
Physicians
Family Physician: Linn Walsh
Outpatient Reclamation Engineer: Wilfredo Mariscal
Inpatient Reclamation Engineer: N/A
History of Present Illness
84-year-old male known to CT surgery service from CABG x 4 (08/25/[address] Banks). Over the past year, the patient has experienced recurrent left pleural effusions requiring thoracenteses (x 2), with most recent on 10/15/24. Cytology and culture
remained negative. He recently transitioned care to [place] and last year. Patient was referred to the emergency room on 10/24/24 from the pulmonary clinic due to shortness of breath and concern for empyema noted on CT scan 10/22/24. Patient
was evaluated by pulmonary team and started on Unisyn. Mr. Mckenzie underwent left pleural chest tube insertion by IR with resultant bloody drainage. Pleural fluid results are pending. Patient currently resting in bed without dyspnea. Chest tube is
to water seal without air leak. CT surgery is consulted to evaluate need for decortication.
Past Medical History
Past Medical History: Arrhythmias (atrial fibrillation s/p CABG-resolved), CAD, COPD, HTN, Hypercholesterolemia, NIDDM (with neuropathy) and Psychiatric (ICU psychosis s/p CABG 2022)
Past Surgical History
Past Surgical History: CABG (x 4 (08/25/22)) and Other (B/l achilles tendon sx (L 1978 and R 1998))
Family History
Mother: N/A
Father: N/A
Social History
Alcohol: None
Drug: None
Tobacco: Former Smoker (quit )
Personal:
Living: With Spouse (@ [facility])
Employment: Retired
Allergies
Allergy/AdvReac Type Severity Reaction Status Date / Time
Sulfa (Sulfonamide Allergy childhood-u Verified 10/24/24 08:18
Antibiotics) nknown
Home Medications
�Medication �Instructions �Recorded �Confirmed �Type
finasteride 5 mg tablet 5 mg PO DAILY Urinary issue #30 09/01/22 10/24/24 Rx
tabs
aspirin 81 mg tablet,delayed 81 mg PO DAILY Blood Clot 10/15/24 10/24/24 History
release Prevention/Tx
cyanocobalamin (vitamin B-12) 1,000 mcg PO DAILY Supplement 10/15/24 10/24/24 History
1,000 mcg tablet (Vitamin B-12)
fluticasone fur. 100 mcg-umeclid 1 inh inhalation R DAILY 10/15/24 10/24/24 History
62.5 mcg-vilant 25 mcg Lung/Breathing Issues
inhalat.powder (Trelegy Ellipta)
atorvastatin 40 mg tablet 40 mg PO QPM High Cholesterol 10/24/24 10/24/24 History
furosemide 40 mg tablet 40 mg PO Q48H Fluid 10/24/24 10/24/24 History
Retention/Swelling
metformin 500 mg tablet 500 mg PO BID@0800,1700 Diabetes 10/24/24 10/24/24 History
Review of Systems
-
History Source: Patient
General: Reports No Symptoms
HEENT: Reports No Symptoms
Respiratory: Reports ESQUIVEL
Cardiac: Reports No Symptoms
Abdomen/GI: Reports No Symptoms
: Reports No Symptoms
Musculoskeletal: Reports No Symptoms
Skin: Reports No Symptoms
Neurological: Reports No Symptoms
Vascular: Reports No Symptoms
Physical Exam
Vital Signs
Temp 97.9 F 10/26/24 07:29
Temp route: Oral 10/26/24 07:29
Pulse 78 10/26/24 07:43
Rhythm: Normal sinus rhythm 10/24/24 20:15
Resp Rate 16 10/26/24 07:43
Blood pressure 110/65 10/26/24 07:29
Blood pressure extremity used: Left upper arm 10/26/24 07:29
Position: Lying 10/26/24 07:29
MAP (cuff-Marli Monitor) 89 10/24/24 12:00
SaO2 97 10/26/24 07:43
Oxygen Mode of Delivery Room air 10/26/24 07:43
Pulse Ox at Rest 97 10/25/24 08:31
Can the patient verbally communicate their pain? Yes 10/26/24 13:20
Pain scale rating: Asleep 10/26/24 13:20
Actual Weight 85.366 kg 10/26/24 06:00
Body Mass Index (BMI) 24.8 10/26/24 06:00
Supine- Blood Pressure 129/75 10/25/24 08:31
Supine- Pulse 83 10/25/24 08:31
Labs
10/26/24 06:28
10/26/24 06:28
Hemoglobin A1c 6.5 % (4.0-5.6) H 10/25/24 06:24
Euf-Q-Hkuunvrnoly Pept 431 pg/ml 10/24/24 11:41
Exam
General: Well Developed and Well Nourished
HEENT: Normocephalic, Anicteric, Moist Mucous Membranes and Atraumatic
Neck: Trachea Midline
Respiratory: Crackles (left base) and Other (left pleural chest tube to water seal, no crepitus, no air leak. 200cc/12h)
Cardiac: S1/S2, Regular Rhythm and Other (sternotomy well healed)
GI: Soft and Non Tender
Rectal: Deferred by Provider
Skin: Warm and Dry
Neuro: AO x 3, No Motor Deficits and Nonfocal/Grossly Intact
Lymph: No Lymphadenopathy
Psych: Calm
Assessment / Plan
-
84 year old male known to CT service from CABG x 4 in 2022, now with recurrent left pleural effusions and concern for empyema
- continue Unisyn as pleural fluid results pending
- CT surgeons to review imaging and assess need for decortication
Data Reviewed
-
EKG: Report Reviewed by me and Discussed with Physician
Radiology: Report Reviewed by me and Discussed with Physician
CT Scan: Report Reviewed by me and Discussed with Physician
Labs: Labs Reviewed by me and Discussed with Physician
[2024-10-26 15:00] VITALS: BP 110/60
--- NOTE | 2024-10-26 15:20 | W.PN.PUL3 ---
Today's Communication / Plan
-
- Continue chest tube to waterseal
- Follow-up chest x-ray in a.m.
- Thoracic surgery consult
Assessment
-
Patient is a very pleasant 84-year-old gentleman who presents to emergency room after being referred from pulmonary clinic for concern of empyema. Patient had coronary artery bypass graft performed in 08/[address] scan from postop time showed a
trace right-sided and moderate left-sided pleural effusion. Over the last year patient has experienced increased exertional dyspnea and in [place] was noted to have left-sided pleural effusion and had a thoracentesis performed. Patient reports
about 800 mL of fluid was removed it led to significant discomfort and pain postprocedure requiring overnight stay. He transitioned his care to [place] and was seen at [facility] recently. Patient was sent for a follow-up thoracentesis for fluid
analysis and had about 900 mL bloody fluid removed on 10/15. Cytology and culture stayed negative. Patient had a follow-up CT scan after procedure which showed some air in the pleural space as well as loculated effusions with pleural thickening
concerning for infection. Patient was referred to emergency room for further evaluation. Pulmonary consultation was requested for further input.
Patient denies any fever, chills, cough or expectoration. Noted to have normal WBC count and afebrile along with hemodynamic stability.
#1. Complex loculated left-sided pleural effusion with pleural thickening.
- S/p chest tube placement on 10/24. Close to 200 mL additional sanguinous output over the last 24 hours. No airleak noted.
- Chest x-ray 10/25 shows thickened pleura without full lung expansion with now pneumothorax, suspect pneumothorax ex vacuo. Very suggestive of underlying trapped lung
- Patient might have some degree of underlying trapped lung since 08/2022 when patient had CABG. Review of prior CT scan from 08/2022 suggests a trace right and moderate left-sided pleural effusion post CABG. Presence of pain after first
thoracentesis also points were possible lung entrapment.
- Patient feels a sense of pull in left hemithorax likely related to suction in the setting of trapped lung. Transition to waterseal, get a 4-hour follow-up chest x-ray
- Continue IV Unasyn, currently pleural fluid Gram stain and culture negative, blood cultures also negative.
- Patient is afebrile, has normal WBC count.
- Follow-up chest x-ray in a.m.
- Thoracic surgery consult.
#2. H/o COPD, severe obstruction with moderate diffusion deficit
- Patient quit smoking 35 years ago.
- Currently uses Trelegy at home with as needed albuterol. Patient reports rare use of albuterol since he has started Trelegy.
#3. H/o CHF
- Clinically appears euvolemic, does not appear to to be decompensated
- BNP near normal
- Continue Lasix
#4. Dyspnea with exertion.
- Appears to be multifactorial due to underlying severe COPD, diffusion impairment, CHF, deconditioning.
- On review of his prior imaging from August [address] scan, I do not think the pleural effusion is the primary etiology of his shortness of breath.
Other medical diagnoses:
- CAD, s/p CABG (2022)
- NIDDM
- Neuropathy
Total time spent on this consultation/encounter __45__ minutes which includes review of history, physical exam, medications, laboratory data, personal review of imaging, extensive review of outpatient records, discussion with care team and
respiratory therapy.
Data:
CT Chest 10/2024: 1. Small right and qgxes-to-vflkmllr left partially loculated pleural effusions. As above, but show some adjacent mild soft tissue attenuation pleural thickening suggesting possible inflammatory process, including possible
empyema.
2. Small volume of gas within the aspect of the left pleural collection. There is also some adjacent increased attenuation. This could be related to small volume of gas and small amount of blood products related to recent thoracentesis. Infectious
etiology is also a consideration.
3. Bilateral compressive atelectasis. Near complete masslike atelectasis of the basal segments of the left lower lobe with appearance suggestive of rounded atelectasis.
4. Small amount of bilateral upper lobe fibrosis, nonspecific pattern.
5. Coronary and aortic atherosclerosis. Post coronary artery bypass.
ECHO 10/2024:
Normal biventricular size and systolic function without regional wall motion
abnormality. Estimated LVEF 60-65%.
Aortic sclerosis without stenosis.
Normal pericardium without effusion.
Pericardial drain for pericardial effusion, 09/2022:
[facility] 08/2022: 1: Normal left ventricular function with EF 62%
2: Triple-vessel CAD as described
3. Recommend evaluation for CABG with grafting of the LAD, D1, OM 3, RPL,+/- RPDA
4. We will add as needed sublingual nitroglycerin and the patient will restrict activities until revascularization has been accomplished
Subjective Data
-
Date of Service:
Date of Service: October 26, 2024
Subjective:
Patient comfortably lying in bed,
Objective Data
Data Reviewed
Vital Signs / I&O / Oxygen:
Vital Signs
Temp Pulse Resp BP Pulse Ox
97.9 F 78 16 110/65 97
10/26/24 07:29 10/26/24 07:43 10/26/24 07:43 10/26/24 07:29 10/26/24 07:43
Intake and Output
10/25/24 10/26/24 10/27/24
06:59 06:59 06:59
Intake Total 220 / 220 1200 / 1200
Output Total 750 / 750 1350 / 1350
Balance -530 / -530 -150 / -150
SaO2 97
Physical Exam
General: Comfortable
HEENT: Normocephalic
Cardiovascular: S1-S2
Respiratory: Clear
GI: Soft and Non Distended
Neurology: Awake and Alert
Skin: Warm
Labs/Micro/Reports
Lab Data
10/26/24 06:28
10/26/24 06:28
Microbiology
10/24/24 11:41 Blood/Venous Blood Culture - Preliminary
No Growth in 48 hours- Final report to follow
10/24/24 14:27 Pleural Fluid Body Fluid Culture - Preliminary
No Growth After 48 Hours
10/24/24 14:27 Pleural Fluid Gram Stain - Preliminary
10/24/24 08:51 Blood/Venous Blood Culture - Preliminary
No Growth in 48 hours- Final report to follow
10/24/24 14:27 Pleural Fluid Fungal Culture - Preliminary
Culture in progress.
Positive cultures are reported as soon as detected.
Final report to follow in four to five weeks.
[2024-10-26] MEDS: NEURONTIN 200 MG PO ×2 (15:38→21:56)
[2024-10-26] MEDS: LIPITOR 40 MG PO (15:42)
[2024-10-26 16:46] LABS: Glucose - Point of Care 130 mg/dl (70-99)
[2024-10-26 21:36] LABS: Glucose - Point of Care 160 mg/dl (70-99)
[2024-10-26 23:00] VITALS: BP 113/59
[2024-10-27] MEDS: UNASYN IV ×2 (04:29→11:33)
[2024-10-27 05:12] VITALS: BMI 25.0
[2024-10-27 07:19] LABS: % Basophils 1.1 % (0-2); % Eosinophils 2.2 % (0-6); % Immature Granulocytes 0.4 % (0-0.5); % Lymphocytes 14.8 % (20.5-51.1); % Monocytes 8.8 % (1.7-9.3); % Neutrophils 72.7 % (42.2-75.2); Absolute Basophils 0.1 10^3/uL (0-0.2); Absolute Eosinophils 0.2 10^3/uL (0-0.7); Absolute Lymphocytes 1.3 10^3/uL (1.2-3.4); Absolute Monocytes 0.8 10^3/uL (0.1-0.6); Absolute Neutrophils 6.6 10^3/uL (1.4-6.5); Hematocrit 37.3 % (39.0-52.0); Mean Corp Hgb Conc. 32.2 g/dL (33.0-37.0); Mean Corpuscular Hgb 28.2 pg (27.0-31.0); Mean Corpuscular Volume 87.6 fL (80.0-94.0); Mean Platelet Volume 8.8 fL (7.4-10.4); Nucleated Red Blood Cells % 0 % (-); Platelet Count 310 10^3/uL (130-400); Red Blood Cell Count 4.26 10^6/uL (4.70-6.10); Red Cell Dist. Width 15.9 % (11.5-14.5); White Blood Cell Count 9.1 10^3/uL (4.8-10.8)
[2024-10-27] MEDS: SPIRIVA RESPIMAT 2.5 MCG 2 PUFF INH (07:44)
[2024-10-27] MEDS: SYMBICORT 80/4.5 MCG INHALER 2 PUFF INH ×2 (07:44→17:54)
[2024-10-27 07:50] LABS: Blood Urea Nitrogen 20 mg/dl (9-20); Calcium 8.6 mg/dl (8.4-10.2); Carbon Dioxide 27 mmol/L (22-30); Chloride 103 mmol/L (98-107); Estimated Creatinine Clearance 79 ml/min; Glucose 130 mg/dl (70-99); Potassium 4.5 mmol/L (3.5-5.1); Sodium 137 mmol/L (135-145); eGFR > 60.00
[2024-10-27 08:00] VITALS: BP 134/70
[2024-10-27] MEDS: GLUCOPHAGE 500 MG PO ×2 (08:48→17:27)
[2024-10-27] MEDS: VITAMIN B-12 1000 MCG PO (08:48)
[2024-10-27] MEDS: PROSCAR 5 MG PO (08:49)
[2024-10-27] MEDS: NEURONTIN PO (08:50)
[2024-10-27 08:51] LABS: Glucose - Point of Care 111 mg/dl (70-99)
[2024-10-27] MEDS: NOVOLOG FLEXPEN-LOW RESISTANCE SC ×3 (08:51→17:27)
[2024-10-27 12:25] LABS: Glucose - Point of Care 172 mg/dl (70-99)
[2024-10-27 13:07] VITALS: BP 135/77; PULSE 99; O2SAT 97
[2024-10-27 13:09] VITALS: BP 135/77; PULSE 100; O2SAT 97
--- NOTE | 2024-10-27 13:42 | PTCARENOTE ---
Messaged hospitalist about pt's bilateral swollen knees. Also relayed to MD that family is concerned it could be a side effect from gabapentin which is new for pt.
--- NOTE | 2024-10-27 14:47 | CM ---
Patient seen at bedside with daughter Angelic
chest tube
PT rec SNF
Options reviewed [facility] preferred-referral entered
Per [facility] cannot accept at this time - have to be a resident at [facility] for 30 days. She will contact daughter
Prefer [facility] referral entered
No pre-auth needed
PLAN: SNF, pending bed availability when stable
--- NOTE | 2024-10-27 14:58 | W.PN.PUL3 ---
Today's Communication / Plan
-
- Chest tube in place, continue waterseal
- Follow-up chest x-ray in a.m.
- Await thoracic surgery recommendations
Assessment
-
Patient is a very pleasant 84-year-old gentleman who presents to emergency room after being referred from pulmonary clinic for concern of empyema. Patient had coronary artery bypass graft performed in 08/[address] scan from postop time showed a
trace right-sided and moderate left-sided pleural effusion. Over the last year patient has experienced increased exertional dyspnea and in [place] was noted to have left-sided pleural effusion and had a thoracentesis performed. Patient reports
about 800 mL of fluid was removed it led to significant discomfort and pain postprocedure requiring overnight stay. He transitioned his care to [place] and was seen at [facility] recently. Patient was sent for a follow-up thoracentesis for fluid
analysis and had about 900 mL bloody fluid removed on 10/15. Cytology and culture stayed negative. Patient had a follow-up CT scan after procedure which showed some air in the pleural space as well as loculated effusions with pleural thickening
concerning for infection. Patient was referred to emergency room for further evaluation. Pulmonary consultation was requested for further input.
Patient denies any fever, chills, cough or expectoration. Noted to have normal WBC count and afebrile along with hemodynamic stability.
#1. Complex loculated left-sided pleural effusion with pleural thickening, ?Chronically trapped lung
- S/p chest tube placement on 10/24. Close to 200 mL additional sanguinous output over the last 24 hours. No airleak noted.
- Chest x-ray 10/25 shows thickened pleura without full lung expansion with now pneumothorax, suspect pneumothorax ex vacuo. Very suggestive of underlying trapped lung
- Patient might have some degree of underlying trapped lung since 08/2022 when patient had CABG. Review of prior CT scan from 08/2022 suggests a trace right and moderate left-sided pleural effusion post CABG. Presence of pain after first
thoracentesis also points were possible lung entrapment.
- Patient felt a sense of pull in left hemithorax likely related to suction in the setting of trapped lung. Transition to waterseal, better since.
- Continue IV Unasyn, currently pleural fluid Gram stain and culture negative, blood cultures also negative.
- Patient is afebrile, has normal WBC count.
- Follow-up chest x-ray in a.m.
- Thoracic surgery consult. Await further recommendations.
#2. H/o COPD, severe obstruction with moderate diffusion deficit
- Patient quit smoking 35 years ago.
- Currently uses Trelegy at home with as needed albuterol. Patient reports rare use of albuterol since he has started Trelegy.
#3. H/o CHF
- Clinically appears euvolemic, does not appear to to be decompensated
- BNP near normal
- Continue Lasix
#4. Dyspnea with exertion.
- Appears to be multifactorial due to underlying severe COPD, diffusion impairment, CHF, deconditioning.
- On review of his prior imaging from August [address] scan, I do not think the pleural effusion is the primary etiology of his shortness of breath.
Other medical diagnoses:
- CAD, s/p CABG (2022)
- NIDDM
- Neuropathy
Discussed with patient's and grandson at bedside
Total time spent on this consultation/encounter __48__ minutes which includes review of history, physical exam, medications, laboratory data, personal review of imaging, extensive review of outpatient records, discussion with care team and
respiratory therapy.
Data:
CT Chest 10/2024: 1. Small right and zokut-pz-ysxppswa left partially loculated pleural effusions. As above, but show some adjacent mild soft tissue attenuation pleural thickening suggesting possible inflammatory process, including possible
empyema.
2. Small volume of gas within the aspect of the left pleural collection. There is also some adjacent increased attenuation. This could be related to small volume of gas and small amount of blood products related to recent thoracentesis. Infectious
etiology is also a consideration.
3. Bilateral compressive atelectasis. Near complete masslike atelectasis of the basal segments of the left lower lobe with appearance suggestive of rounded atelectasis.
4. Small amount of bilateral upper lobe fibrosis, nonspecific pattern.
5. Coronary and aortic atherosclerosis. Post coronary artery bypass.
ECHO 10/2024:
Normal biventricular size and systolic function without regional wall motion
abnormality. Estimated LVEF 60-65%.
Aortic sclerosis without stenosis.
Normal pericardium without effusion.
Pericardial drain for pericardial effusion, 09/2022:
[facility] 08/2022: 1: Normal left ventricular function with EF 62%
2: Triple-vessel CAD as described
3. Recommend evaluation for CABG with grafting of the LAD, D1, OM 3, RPL,+/- RPDA
4. We will add as needed sublingual nitroglycerin and the patient will restrict activities until revascularization has been accomplished
Subjective Data
-
Date of Service:
Date of Service: October 27, 2024
Subjective:
Patient comfortably lying in bed, in no acute distress, saturating well on room air
Review of Systems
Genitourinary: Other (No new symptoms reported)
Objective Data
Data Reviewed
Vital Signs / I&O / Oxygen:
Vital Signs
Temp Pulse Resp BP Pulse Ox
97.5 F 91 18 134/70 97
10/27/24 08:00 10/27/24 08:00 10/27/24 08:00 10/27/24 08:00 10/27/24 08:00
Intake and Output
10/26/24 10/27/24 10/28/24
06:59 06:59 06:59
Intake Total 1200 / 1200 480 / 480 480 / 480
Output Total 1350 / 1350 1025 / 1025 300 / 300
Balance -150 / -150 -545 / -545 180 / 180
SaO2 97
Physical Exam
General: Comfortable
HEENT: Normocephalic
Cardiovascular: S1-S2
Respiratory: Clear
GI: Soft and Non Distended
Neurology: Awake and Alert
Skin: Warm
Labs/Micro/Reports
Lab Data
10/27/24 06:51
10/27/24 06:51
Microbiology
10/24/24 14:27 Pleural Fluid Fungal Culture - Preliminary
Culture in progress.
Positive cultures are reported as soon as detected.
Final report to follow in four to five weeks.
10/24/24 11:41 Blood/Venous Blood Culture - Preliminary
No Growth in 72 hours- Final report to follow
10/24/24 14:27 Pleural Fluid Body Fluid Culture - Final
No Growth After 72 Hours
10/24/24 14:27 Pleural Fluid Gram Stain - Final
10/24/24 08:51 Blood/Venous Blood Culture - Preliminary
No Growth in 72 hours- Final report to follow
[2024-10-27 15:01] LABS: Erythrocyte Sed Rate 64 mm/hour (0-20)
[2024-10-27] MEDS: NEURONTIN 200 MG PO ×2 (15:06→21:10)
[2024-10-27] MEDS: TYLENOL 650 MG PO (15:06)
--- NOTE | 2024-10-27 15:06 | W.PN.HOSP.TC ---
Today's Communication/Plan
-
Chest tube remains in place.
Follow-up chest x-ray with ex-vacuo hydropneumothorax.
CT surgery to evaluate.
So far negative ID workup. Will hold further antibiotics.
Complains of bilateral left greater than right knee arthralgia.
Hold Unasyn (? If this is initially related arthralgia)
Uric acid
Left knee x-ray
Assessment / Plan
Assessment / Plan
General: No Apparent Distress, Comfortable and Conversant
HEENT: NormoCephalic, Moist mucous membranes, Atraumatic
Respiratory: Non Labored Respirations, decreased breath sounds left base and periphery, left-sided chest tube to waterseal with serosanguineous output
Cardiac: S1/S2 and Regular Rhythm; No Rub or Gallop
GI: Soft, Non Tender, Non Distended and Normal Bowel Sounds
Musculoskeletal: No Edema, no deformity
Skin: Warm and dry
: NO Friedman
Neuro: Awake, Alert, Nonfocal/grossly intact
Psych: Calm and Intact Judgment/Insight
Mr. Mckenzie is an 84-year-old male with a medical history of COPD (last PFT at [facility] in February 2024 showed severe obstruction and moderately severe restriction), CAD (status post CABG x4 on 08/25/22), pericardial effusion (after CABG,
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
arrhythmia (patient wore Holter monitor for a week, A-fib?, not on anticoagulation) who presents now with ongoing shortness of breath worse with exertion. He had a recent thoracentesis for recurrent left lower effusion on 10/15/2024. Repeat CT
imaging in the outpatient setting on 10/22 showed small to moderate left partially loculated pleural effusions with some concern for infection. He has no new symptoms other than his ongoing shortness of breath. Denies fevers, headaches,
palpitations, abdominal pain, nausea or vomiting. He was sent to the emergency department for further evaluation and management.
In the ED, he has remained hemodynamically stable. Remains afebrile and without leukocytosis. He is breathing comfortably and saturating appropriately on room air at rest. Labs are generally unremarkable. He has been admitted for treatment of
possible empyema.
Loculated left pleural effusions:
- Left pleural catheter placed by IR 10/24, pleural lysis not performed due to sanguinous output
- Started on Unasyn, pleural fluid cultures with no growth to date
- He has remained afebrile and without leukocytosis, low suspicion for infectious etiology at this point, low threshold to discontinue antibiotics
- Will follow-up repeat chest x-ray
- Appreciate further guidance from pulmonology, will discuss duration of chest tube and timing of removal
- Currently not requiring oxygen, breathing comfortably on room air at rest
Bilateral knee arthralgia.
Exam bilateral knees left greater than right with no edema or erythema. Limited range of motion left greater right.
If this is arthralgia related to Unasyn.
Hold Unasyn for now
Uric acid level
Left knee x-ray
COPD:
- Currently without exacerbation
- Reportedly previous PFTs in February 2024 showed severe obstruction and moderately severe restriction
- Continue scheduled inhalers with additional as needed
Lower extremity neuropathy:
- Bilateral, never treated
- Suspect secondary to his diabetes
- Started on low-dose gabapentin with significant relief, will continue at discharge
NIDDM:
- On metformin 500 mg p.o. twice daily at home which we will continue
- Blood glucose fairly well-controlled, Hemoglobin A1c 6.5%
- Suspect his reported neuropathy is related to his diabetes, continue gabapentin
CAD:
- History of CABG x 4 on 08/25/2022, postoperative pericardial effusion status post pericardiocentesis
- Currently stable
- Will resume daily aspirin eventually after resolution of sanguinous pleural output, continue high intensity statin
CHF:
- Currently compensated
- Appears to be preserved ejection fraction per echocardiograms in chart
- Continue Lasix 40 mg p.o. every 48 hours which is his outpatient regimen
- Does not appear to be on a beta-alethea or afterload reduction
- Follows with Dr. Mariscal at [facility] cardiology
DVT prophylaxis: SCDs
CODE STATUS: Full code
Total time spent on today's encounter was 40 minutes
Anticipated Discharge: > 48 hours
Subjective/Interval History
-
Date of Service: October 27, 2024
Objective Data
-
Labs:
Laboratory Results
10/27/24
06:51
WBC 9.1
Hgb 12.0 L
Hct 37.3 L
Plt Count 310
Sodium 137
Potassium 4.5
Chloride 103
Carbon Dioxide 27
BUN 20
Creatinine 0.8
Glucose 130 H
Calcium 8.6
Vital Signs:
Vital Signs
Temp Pulse Resp BP Pulse Ox
97.5 F 91 18 134/70 97
10/27/24 08:00 10/27/24 08:00 10/27/24 08:00 10/27/24 08:00 10/27/24 08:00
I&O
10/26/24 10/27/24 10/28/24
06:59 06:59 06:59
Intake Total 1200 / 1200 480 / 480 480 / 480
Output Total 1350 / 1350 1025 / 1025 300 / 300
Balance -150 / -150 -545 / -545 180 / 180
[2024-10-27 15:20] LABS: Uric Acid 4.8 mg/dl (3.5-8.5)
[2024-10-27 16:33] VITALS: BP 113/67
[2024-10-27 17:25] LABS: Glucose - Point of Care 185 mg/dl (70-99)
[2024-10-27] MEDS: LIPITOR 40 MG PO (17:27)
[2024-10-27] MEDS: NOVOLOG FLEXPEN-LOW RESISTANCE 1 UNITS SC (18:05)
[2024-10-27 21:23] LABS: Glucose - Point of Care 133 mg/dl (70-99)
[2024-10-27 23:24] VITALS: BP 120/67
[2024-10-28 06:08] VITALS: BMI 24.9
[2024-10-28 07:35] VITALS: BP 115/66
[2024-10-28 07:37] LABS: Glucose - Point of Care 135 mg/dl (70-99)
[2024-10-28] MEDS: SPIRIVA RESPIMAT 2.5 MCG 2 PUFF INH (08:12)
[2024-10-28] MEDS: SYMBICORT 80/4.5 MCG INHALER 2 PUFF INH ×2 (08:13→19:34)
[2024-10-28] MEDS: NOVOLOG FLEXPEN-LOW RESISTANCE SC ×2 (08:38→17:08)
[2024-10-28] MEDS: PROSCAR 5 MG PO (09:00)
[2024-10-28] MEDS: VITAMIN B-12 1000 MCG PO (09:00)
[2024-10-28] MEDS: NEURONTIN 200 MG PO ×2 (09:00→15:44)
[2024-10-28] MEDS: LASIX 40 MG PO (09:00)
[2024-10-28] MEDS: GLUCOPHAGE 500 MG PO ×2 (09:00→17:17)
--- NOTE | 2024-10-28 09:39 | CM ---
Spoke with daughter Angelic
no pre auth, prefer [facility]
declined [facility]
spoke with Sosa (Edita Chang) & updated
[facility] accepted, pending bed availability
no pre auth
PLAN: [facility], pending bed availability, when stable
[2024-10-28 11:39] LABS: Glucose - Point of Care 165 mg/dl (70-99)
--- NOTE | 2024-10-28 12:37 | W.PN.PUL3 ---
Today's Communication / Plan
-
- Monitor off antibiotics
- Await further recommendations from surgery service
Assessment
-
Patient is a very pleasant 84-year-old gentleman who presents to emergency room after being referred from pulmonary clinic for concern of empyema. Patient had coronary artery bypass graft performed in 08/[address] scan from postop time showed a
trace right-sided and moderate left-sided pleural effusion. Over the last year patient has experienced increased exertional dyspnea and in [place] was noted to have left-sided pleural effusion and had a thoracentesis performed. Patient reports
about 800 mL of fluid was removed it led to significant discomfort and pain postprocedure requiring overnight stay. He transitioned his care to [place] and was seen at [facility] recently. Patient was sent for a follow-up thoracentesis for fluid
analysis and had about 900 mL bloody fluid removed on 10/15. Cytology and culture stayed negative. Patient had a follow-up CT scan after procedure which showed some air in the pleural space as well as loculated effusions with pleural thickening
concerning for infection. Patient was referred to emergency room for further evaluation. Pulmonary consultation was requested for further input.
Patient denies any fever, chills, cough or expectoration. Noted to have normal WBC count and afebrile along with hemodynamic stability.
#1. Complex loculated left-sided pleural effusion with pleural thickening, ?Chronically trapped lung
- S/p chest tube placement on 10/24. Minimal chest tube output over the last 24 hours.
- Chest x-ray shows thickened pleura without full lung expansion with now pneumothorax, suspect pneumothorax ex vacuo. Very suggestive of underlying trapped lung
- Patient might have some degree of underlying trapped lung since 08/2022 when patient had CABG. Review of prior CT scan from 08/2022 suggests a trace right and moderate left-sided pleural effusion post CABG. Presence of pain after first
thoracentesis also points were possible lung entrapment.
- Patient felt a sense of pull in left hemithorax likely related to suction in the setting of trapped lung. Transition to [facility], better since.
- Pleural fluid Gram stain, cultures negative, peripheral blood cultures negative, afebrile, normal WBC count. Antibiotics have been discontinued. Do not think patient has empyema
- Thoracic surgery consult. Await further recommendations regarding decortication versus conservative management.
#2. H/o COPD, severe obstruction with moderate diffusion deficit
- Patient quit smoking 35 years ago.
- Currently uses Trelegy at home with as needed albuterol. Patient reports rare use of albuterol since he has started Trelegy.
#3. H/o CHF
- Clinically appears euvolemic, does not appear to to be decompensated
- BNP near normal
- Continue Lasix
#4. Dyspnea with exertion.
- Appears to be multifactorial due to underlying severe COPD, diffusion impairment, CHF, deconditioning.
- On review of his prior imaging from August [address] scan, I do not think the pleural effusion is the primary etiology of his shortness of breath.
Other medical diagnoses:
- CAD, s/p CABG (2022)
- NIDDM
- Neuropathy
- Bilateral knee pain and swelling, discussed with primary team, workup in progress.
Discussed with patient's and grandson at bedside
Total time spent on this consultation/encounter __46__ minutes which includes review of history, physical exam, medications, laboratory data, personal review of imaging, extensive review of outpatient records, discussion with care team and
respiratory therapy.
Data:
CT Chest 10/2024: 1. Small right and nzdov-sd-pfbbjjsq left partially loculated pleural effusions. As above, but show some adjacent mild soft tissue attenuation pleural thickening suggesting possible inflammatory process, including possible
empyema.
2. Small volume of gas within the aspect of the left pleural collection. There is also some adjacent increased attenuation. This could be related to small volume of gas and small amount of blood products related to recent thoracentesis. Infectious
etiology is also a consideration.
3. Bilateral compressive atelectasis. Near complete masslike atelectasis of the basal segments of the left lower lobe with appearance suggestive of rounded atelectasis.
4. Small amount of bilateral upper lobe fibrosis, nonspecific pattern.
5. Coronary and aortic atherosclerosis. Post coronary artery bypass.
ECHO 10/2024:
Normal biventricular size and systolic function without regional wall motion
abnormality. Estimated LVEF 60-65%.
Aortic sclerosis without stenosis.
Normal pericardium without effusion.
Pericardial drain for pericardial effusion, 09/2022:
[facility] 08/2022: 1: Normal left ventricular function with EF 62%
2: Triple-vessel CAD as described
3. Recommend evaluation for CABG with grafting of the LAD, D1, OM 3, RPL,+/- RPDA
4. We will add as needed sublingual nitroglycerin and the patient will restrict activities until revascularization has been accomplished
Subjective Data
-
Date of Service:
Date of Service: October 28, 2024
Subjective:
Patient comfortably lying in bed in no acute distress.
Review of Systems
Genitourinary: Other (No new complaints other than bilateral knee pain)
Objective Data
Data Reviewed
Vital Signs / I&O / Oxygen:
Vital Signs
Temp Pulse Resp BP Pulse Ox
98 F 82 19 115/66 97
10/28/24 07:35 10/28/24 07:35 10/28/24 07:35 10/28/24 07:35 10/28/24 07:35
Intake and Output
10/27/24 10/28/24 10/29/24
06:59 06:59 06:59
Intake Total 480 / 480 960 / 960
Output Total 1025 / 1025 1300 / 1300
Balance -545 / -545 -340 / -340
SaO2 97
Physical Exam
General: Comfortable
HEENT: Normocephalic
Cardiovascular: S1-S2 and Other (Bilateral knee swelling)
Respiratory: Clear
GI: Soft and Non Distended
Neurology: Awake and Alert
Skin: Warm
Labs/Micro/Reports
Lab Data
10/27/24 06:51
10/27/24 06:51
Microbiology
10/24/24 11:41 Blood/Venous Blood Culture - Preliminary
No Growth in 4 days- Final report to follow
10/24/24 08:51 Blood/Venous Blood Culture - Preliminary
No Growth in 4 days- Final report to follow
10/24/24 14:27 Pleural Fluid Acid Fast Bacilli Smear - Preliminary
10/24/24 14:27 Pleural Fluid Acid Fast Bacilli Culture - Preliminary
10/24/24 14:27 Pleural Fluid Fungal Culture - Preliminary
Culture in progress.
Positive cultures are reported as soon as detected.
Final report to follow in four to five weeks.
10/24/24 14:27 Pleural Fluid Body Fluid Culture - Final
No Growth After 72 Hours
10/24/24 14:27 Pleural Fluid Gram Stain - Final
[2024-10-28] MEDS: NOVOLOG FLEXPEN-LOW RESISTANCE 1 UNITS SC (13:31)
[2024-10-28 13:36] LABS: Uric Acid 4.6 mg/dl (3.5-8.5)
[2024-10-28] MEDS: HEPARIN 5000 UNITS SC ×2 (13:46→21:32)
--- NOTE | 2024-10-28 13:50 | W.PN.HOSP.TC ---
Today's Communication/Plan
-
Chest tube to waterseal
CT surgery evaluation pending
Orthopedic consult with consideration of knee arthrocentesis.
Prednisone
Assessment / Plan
Assessment / Plan
General: No Apparent Distress, Comfortable and Conversant
HEENT: NormoCephalic, Moist mucous membranes, Atraumatic
Respiratory: Non Labored Respirations, decreased breath sounds left base and periphery, left-sided chest tube to waterseal with serosanguineous output
Cardiac: S1/S2 and Regular Rhythm; No Rub or Gallop
GI: Soft, Non Tender, Non Distended and Normal Bowel Sounds
Musculoskeletal: No Edema, no deformity. Bilateral knee edema with decrease range of motion
Skin: Warm and dry
: NO Friedman
Neuro: Awake, Alert, Nonfocal/grossly intact
Psych: Calm and Intact Judgment/Insight
Mr. Mckenzie is an 84-year-old male with a medical history of COPD (last PFT at [facility] in February 2024 showed severe obstruction and moderately severe restriction), CAD (status post CABG x4 on 08/25/22), pericardial effusion (after CABG,
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
arrhythmia (patient wore Holter monitor for a week, A-fib?, not on anticoagulation) who presents now with ongoing shortness of breath worse with exertion. He had a recent thoracentesis for recurrent left lower effusion on 10/15/2024. Repeat CT
imaging in the outpatient setting on 10/22 showed small to moderate left partially loculated pleural effusions with some concern for infection. He has no new symptoms other than his ongoing shortness of breath. Denies fevers, headaches,
palpitations, abdominal pain, nausea or vomiting. He was sent to the emergency department for further evaluation and management.
In the ED, he has remained hemodynamically stable. Remains afebrile and without leukocytosis. He is breathing comfortably and saturating appropriately on room air at rest. Labs are generally unremarkable. He has been admitted for treatment of
possible empyema.
Loculated left pleural effusions:
- Left pleural catheter placed by IR 10/24, pleural lysis not performed due to sanguinous output
- Started on Unasyn, pleural fluid cultures with no growth to date
- He has remained afebrile and without leukocytosis, low suspicion for infectious etiology at this point, low threshold to discontinue antibiotics
- Will follow-up repeat chest x-ray
- CT surgery evaluation pending
- Currently not requiring oxygen, breathing comfortably on room air at rest
Bilateral knee arthritis. Acute onset.
Exam bilateral knees left greater than right with no edema or erythema. Limited range of motion left greater right.
X-ray of the left knee with no acute abnormalities
Uric acid within normal limits at 4.8
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
Given acute on bilateral involvement less likely infectious
Will ask orthopedics to evaluate with consideration of diagnosed arthrocentesis.
Will start prednisone empirically
COPD:
- Currently without exacerbation
- Reportedly previous PFTs in February 2024 showed severe obstruction and moderately severe restriction
- Continue scheduled inhalers with additional as needed
Lower extremity neuropathy:
- Bilateral, never treated
- Suspect secondary to his diabetes
- Started on low-dose gabapentin with significant relief, will continue at discharge
NIDDM:
- On metformin 500 mg p.o. twice daily at home which we will continue
- Blood glucose fairly well-controlled, Hemoglobin A1c 6.5%
- Suspect his reported neuropathy is related to his diabetes, continue gabapentin
CAD:
- History of CABG x 4 on 08/25/2022, postoperative pericardial effusion status post pericardiocentesis
- Currently stable
- Will resume daily aspirin eventually after resolution of sanguinous pleural output, continue high intensity statin
CHF:
- Currently compensated
- Appears to be preserved ejection fraction per echocardiograms in chart
- Continue Lasix 40 mg p.o. every 48 hours which is his outpatient regimen
- Does not appear to be on a beta-alethea or afterload reduction
- Follows with Dr. Mariscal at [facility] cardiology
DVT prophylaxis: SCDs
CODE STATUS: Full code
Total time spent on today's encounter was 40 minutes
Anticipated Discharge: 24 - 48 hours
Subjective/Interval History
-
Date of Service: October 28, 2024
Objective Data
-
Vital Signs:
Vital Signs
Temp Pulse Resp BP Pulse Ox
98 F 82 19 115/66 97
10/28/24 07:35 10/28/24 07:35 10/28/24 07:35 10/28/24 07:35 10/28/24 07:35
I&O
10/27/24 10/28/24 10/29/24
06:59 06:59 06:59
Intake Total 480 / 480 960 / 960
Output Total 1025 / 1025 1300 / 1300
Balance -545 / -545 -340 / -340
[2024-10-28 14:58] VITALS: BP 105/57
[2024-10-28] MEDS: DELTASONE 20 MG PO (15:44)
[2024-10-28] MEDS: TYLENOL 650 MG PO (15:44)
[2024-10-28] MEDS: PROTONIX 20 MG PO (15:44)
[2024-10-28 17:00] LABS: Glucose - Point of Care 121 mg/dl (70-99)
--- NOTE | 2024-10-28 17:17 | W.PN.UPDATE ---
Update Note
Progress Note Update
CARDIAC SURGERY ATTENDING:
It was my pleasure to meet with Mr. Rod Mckenzie and his family at bedside today. His and daughter were present during our conversations. He is very well-known to me. I have reviewed his case with my colleague, Dr. Jose Manuel Wright. His left
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 This has resulted in this has resulted in fluid collection resulting in prior thoracenteses ([facility]H in [place] reportedly withdrew 800mL; On 10/15/2024, pt w/ additional
900 cc withdrawn) and L CT placement during this admission on 10/24/2024 w/ dark, bloody fluid aspirated. This fluid was cultured and is negative for growth thus far. He has no leukocytosis and is afebrile. Currently he is breathing comfortably on
RA. His main issue currently is B/L knee swelling and tenderness limiting his ambulatory ability. He also has been suffering from worsening neuropathies that have had a negative impact on his functional status.
We discussed the various potential management strategies for his recurrent effusions. Our discussions included robotic versus minithoracotomy decortication to hopefully achieve expansion of his trapped left lower lobe, ongoing catheter-based
management of his chest, Pleurx catheter placement, and ongoing medical therapy for his COPD with conservative management of his trapped left lower lobe. The patient and his family are undecided as to which direction they ultimately wish to
proceed, but for the time being they do not wish to proceed with surgery..
I would recommend ongoing management of the patient's chest tube with eventual removal when indicated, medical management with hopeful identification behind the patient's bilateral knee issue, and eventual outpatient follow-up with my colleague,
Jose Manuel Wright.
Thank you. Please call with any questions or concerns.
Song Banks MD
[phone]
[2024-10-28] MEDS: LIPITOR 40 MG PO (17:18)
--- NOTE | 2024-10-28 19:23 | PTCARENOTE ---
Communicated with Dr Gipson regarding patient's order for chest tube to suction, but reports stating water seal. MD confirmed that chest tube should be to water seal. Dr Banks in to speak with patient and family during shift regarding plan of
care. After discussion Dr Banks reported that procedure could be done outpatient. Information relayed to Dr Gipson, Dr Wright, and nurse resuming care. Pt given PRN Tylenol for BL knee pain with some relief. at bedside. Call irizarry within reach.
[2024-10-28 21:41] LABS: Glucose - Point of Care 205 mg/dl (70-99)
[2024-10-28] MEDS: NEURONTIN PO (22:31)
[2024-10-28 23:13] VITALS: BP 111/68
[2024-10-29 06:00] VITALS: BMI 24.8
[2024-10-29 07:00] VITALS: BP 109/67
[2024-10-29] MEDS: SPIRIVA RESPIMAT 2.5 MCG 2 PUFF INH (07:27)
[2024-10-29] MEDS: SYMBICORT 80/4.5 MCG INHALER 2 PUFF INH ×2 (07:27→19:22)
[2024-10-29 07:49] LABS: Glucose - Point of Care 118 mg/dl (70-99)
--- NOTE | 2024-10-29 08:38 | CON.ORTHO ---
Consultation - Orthopedics
History
Mr. Mckenzie is an 84 year old male with PMH of COPD (last PFT at [facility] in February 2024 showed severe obstruction and moderately severe restriction), CAD (status post CABG x4 on 08/25/22), pericardial effusion (after CABG, resolved after
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 He
has been treated for pleural effusions this hospital stay, and unfortunately, developed spontaneous bilateral knee pain and effusions. He denies any falls or injuries, and denies any history of issues with his knees in the past. He endorses a
generalized aching about the knees, and states he has difficulty bending the knee and ambulating. He was started on prednisone yesterday for suspected pseudogout.
Allergies / Home Medications
Allergy/AdvReac Type Severity Reaction Status Date / Time
Sulfa (Sulfonamide Allergy childhood-u Verified 10/24/24 08:18
Antibiotics) nknown
�Medication �Instructions �Recorded
finasteride 5 mg tablet 5 mg PO DAILY Urinary issue #30 09/01/22
tabs
aspirin 81 mg tablet,delayed 81 mg PO DAILY Blood Clot 10/15/24
release Prevention/Tx
cyanocobalamin (vitamin B-12) 1,000 mcg PO DAILY Supplement 10/15/24
1,000 mcg tablet (Vitamin B-12)
fluticasone fur. 100 mcg-umeclid 1 inh inhalation R DAILY 10/15/24
62.5 mcg-vilant 25 mcg Lung/Breathing Issues
inhalat.powder (Trelegy Ellipta)
atorvastatin 40 mg tablet 40 mg PO QPM High Cholesterol 10/24/24
furosemide 40 mg tablet 40 mg PO Q48H Fluid 10/24/24
Retention/Swelling
metformin 500 mg tablet 500 mg PO BID@0800,1700 Diabetes 10/24/24
Vital Signs / Lab Results
Temp Pulse Resp BP Pulse Ox
97.8 F 88 16 109/67 97
10/29/24 07:00 10/29/24 07:28 10/29/24 07:28 10/29/24 07:00 10/29/24 07:00
10/27/24 06:51
10/27/24 06:51
XR Left Knee FINDINGS:
No acute fracture or dislocation. Moderate patellofemoral joint space narrowing with subchondral cysts. Minimal medial compartment joint space narrowing. Small tricompartmental marginal osteophytes. Minor meniscal chondrocalcinosis. Small lobular
calcification adjacent to the medial femoral condyle, perhaps related to a remote MCL injury. Small suprapatellar joint effusion. Extensive vascular calcifications.
WBC WNL
ESR 64
Uric acid 4.6
Directed exam of boths knees reveals large effusion about either knee. No significant erythema, ecchymosis or lesions. Generalized tenderness about the anterior knees. Pain with flexion of both knees to about 95 degrees. Stable to varus and valgus
stress. NVID.
Assessment / Plan
Bilateral knee effusions
--Unfortunately, Rod has experienced spontaneous bilateral knee pain and effusions since being admitted to the hospital. I have low suspicion for septic joint, but given his large effusions, I did aspirate his knees today and sent the fluid for
testing. His left knee was aspirated for 55 cc of mildly cloudy, straw colored fluid. His right knee was aspirated for 35 cc of cloudy, straw colored fluid. Both of his knees were wrapped in ARLIN bandages, and these may be removed tomorrow. He may
perform gentle ROM as tolerated. He may be weight bearing as tolerated, but I recommend utilizing an assistive device. Pain control prn. Ice and elevation prn. Orthopedics will continue to follow along.
[2024-10-29] MEDS: PROSCAR 5 MG PO (09:17)
[2024-10-29] MEDS: GLUCOPHAGE 500 MG PO ×2 (09:17→17:25)
[2024-10-29] MEDS: NEURONTIN 200 MG PO ×3 (09:17→22:11)
[2024-10-29] MEDS: DELTASONE 20 MG PO (09:18)
[2024-10-29] MEDS: VITAMIN B-12 1000 MCG PO (09:18)
[2024-10-29] MEDS: PROTONIX 20 MG PO (09:18)
[2024-10-29] MEDS: HEPARIN 5000 UNITS SC ×2 (09:18→20:18)
[2024-10-29] MEDS: NOVOLOG FLEXPEN-LOW RESISTANCE SC (09:19)
--- NOTE | 2024-10-29 09:53 | PN.IRAD.UPD ---
Update Note - IRAD
- -
Left chest tube removed bedside per . Site was cleaned and dressed with an occlusive dressing. No CXR needed post per PAULO MARR.
--- NOTE | 2024-10-29 10:32 | CM ---
Patient seen at bedside
Left chest tube removed bedside per
PT previously made rec SNF, PT yesterday not able to participate d/t knee pain
updated Kyra at [facility]
PLAN: SNF previously rec, Will continue to monitor therapy progress
[2024-10-29 10:44] LABS: Body Fluid Mononuclear 17.1 %; Body Fluid Polymorphonuclear 82.9 %; Body Fluid WBC 16070 /CUMM; Body Fluid WBC 7410 /CUMM
[2024-10-29 10:45] LABS: Body Fluid Mononuclear 9.3 %; Body Fluid Polymorphonuclear 90.7 %
[2024-10-29 11:15] LABS: Body Fluid Second Tech EF
[2024-10-29 11:19] LABS: Body Fluid Second Tech EF
[2024-10-29 11:37] LABS: Glucose - Point of Care 268 mg/dl (70-99)
--- NOTE | 2024-10-29 11:51 | W.PN.PUL3 ---
Today's Communication / Plan
-
- Discontinue chest tube, has been clamped overnight
- Follow-up chest x-ray in a.m.
- Discharge planning
Assessment
-
Patient is a very pleasant 84-year-old gentleman who presents to emergency room after being referred from pulmonary clinic for concern of empyema. Patient had coronary artery bypass graft performed in 08/[address] scan from postop time showed a
trace right-sided and moderate left-sided pleural effusion. Over the last year patient has experienced increased exertional dyspnea and in [place] was noted to have left-sided pleural effusion and had a thoracentesis performed. Patient reports
about 800 mL of fluid was removed it led to significant discomfort and pain postprocedure requiring overnight stay. He transitioned his care to [place] and was seen at [facility] recently. Patient was sent for a follow-up thoracentesis for fluid
analysis and had about 900 mL bloody fluid removed on 10/15. Cytology and culture stayed negative. Patient had a follow-up CT scan after procedure which showed some air in the pleural space as well as loculated effusions with pleural thickening
concerning for infection. Patient was referred to emergency room for further evaluation. Pulmonary consultation was requested for further input.
Patient denies any fever, chills, cough or expectoration. Noted to have normal WBC count and afebrile along with hemodynamic stability.
#1. Complex loculated left-sided pleural effusion with pleural thickening, ?Chronically trapped lung
- S/p chest tube placement on 10/24. Minimal chest tube output over the last 24 hours.
- Chest x-ray showed thickened pleura without full lung expansion with now pneumothorax, suspect pneumothorax ex vacuo. Very suggestive of underlying trapped lung
- Patient might have some degree of underlying trapped lung since 08/2022 when patient had CABG. Review of prior CT scan from 08/2022 suggests a trace right and moderate left-sided pleural effusion post CABG. Presence of pain after first
thoracentesis also points were possible lung entrapment.
- Patient felt a sense of pull in left hemithorax likely related to suction in the setting of trapped lung. Transitioned to waterseal, better since.
- Pleural fluid Gram stain, cultures negative, peripheral blood cultures negative, afebrile, normal WBC count. Antibiotics have been discontinued. Do not think patient has empyema
- Thoracic surgery consulted. Decortication was recommended, however patient and family have decided to continue conservative management for now and consider decortication in future if symptoms continue.
- Chest tube has been on clamped overnight, follow-up x-ray this morning stable, chest tube to be removed. IR consult placed.
#2. H/o COPD, severe obstruction with moderate diffusion deficit
- Patient quit smoking 35 years ago.
- Currently uses Trelegy at home with as needed albuterol. Patient reports rare use of albuterol since he has started Trelegy.
#3. H/o CHF
- Clinically appears euvolemic, does not appear to to be decompensated
- BNP near normal
- Continue Lasix
#4. Dyspnea with exertion.
- Appears to be multifactorial due to underlying severe COPD, diffusion impairment, CHF, deconditioning.
- On review of his prior imaging from August [address] scan, I do not think the pleural effusion is the primary etiology of his shortness of breath.
Other medical diagnoses:
- CAD, s/p CABG (2022)
- NIDDM
- Neuropathy
- Bilateral knee pain and swelling, discussed with primary team, workup in progress.
Discussed with patient's and grandson at bedside
Total time spent on this consultation/encounter __44__ minutes which includes review of history, physical exam, medications, laboratory data, personal review of imaging, extensive review of outpatient records, discussion with care team and
respiratory therapy.
Data:
CT Chest 10/2024: 1. Small right and hnotr-hz-wsyyrbxb left partially loculated pleural effusions. As above, but show some adjacent mild soft tissue attenuation pleural thickening suggesting possible inflammatory process, including possible
empyema.
2. Small volume of gas within the aspect of the left pleural collection. There is also some adjacent increased attenuation. This could be related to small volume of gas and small amount of blood products related to recent thoracentesis. Infectious
etiology is also a consideration.
3. Bilateral compressive atelectasis. Near complete masslike atelectasis of the basal segments of the left lower lobe with appearance suggestive of rounded atelectasis.
4. Small amount of bilateral upper lobe fibrosis, nonspecific pattern.
5. Coronary and aortic atherosclerosis. Post coronary artery bypass.
ECHO 10/2024:
Normal biventricular size and systolic function without regional wall motion
abnormality. Estimated LVEF 60-65%.
Aortic sclerosis without stenosis.
Normal pericardium without effusion.
Pericardial drain for pericardial effusion, 09/2022:
[facility] 08/2022: 1: Normal left ventricular function with EF 62%
2: Triple-vessel CAD as described
3. Recommend evaluation for CABG with grafting of the LAD, D1, OM 3, RPL,+/- RPDA
4. We will add as needed sublingual nitroglycerin and the patient will restrict activities until revascularization has been accomplished
Subjective Data
-
Date of Service:
Date of Service: October 29, 2024
Subjective:
Patient comfortably sitting, in no acute distress, no cough or pleuritic pain.
Review of Systems
Genitourinary: Other (No new symptoms reported.)
Objective Data
Data Reviewed
Vital Signs / I&O / Oxygen:
Vital Signs
Temp Pulse Resp BP Pulse Ox
97.8 F 88 16 109/67 97
10/29/24 07:00 10/29/24 07:28 10/29/24 07:28 10/29/24 07:00 10/29/24 07:00
Intake and Output
10/28/24 10/29/24 10/30/24
06:59 06:59 06:59
Intake Total 960 / 960 1380 / 1380
Output Total 1300 / 1300 1150 / 1150
Balance -340 / -340 230 / 230
SaO2 97
Physical Exam
General: Comfortable
HEENT: Normocephalic
Cardiovascular: S1-S2 and Other (Bilateral knee swelling, improved after arthrocentesis )
Respiratory: Clear
GI: Soft and Non Distended
Neurology: Awake and Alert
Skin: Warm
Labs/Micro/Reports
Lab Data
10/27/24 06:51
10/27/24 06:51
Microbiology
10/24/24 11:41 Blood/Venous Blood Culture - Final
No Growth - Final Report
10/24/24 08:51 Blood/Venous Blood Culture - Final
No Growth - Final Report
10/24/24 14:27 Pleural Fluid Acid Fast Bacilli Smear - Preliminary
10/24/24 14:27 Pleural Fluid Acid Fast Bacilli Culture - Preliminary
10/24/24 14:27 Pleural Fluid Fungal Culture - Preliminary
Culture in progress.
Positive cultures are reported as soon as detected.
Final report to follow in four to five weeks.
10/24/24 14:27 Pleural Fluid Body Fluid Culture - Final
No Growth After 72 Hours
10/24/24 14:27 Pleural Fluid Gram Stain - Final
[2024-10-29] MEDS: NOVOLOG FLEXPEN-LOW RESISTANCE 3 UNITS SC (13:30)
[2024-10-29 13:34] LABS: Glucose - Point of Care 261 mg/dl (70-99)
[2024-10-29 15:35] VITALS: BP 103/52; PULSE 86; PULSE 95; O2SAT 95
--- NOTE | 2024-10-29 15:40 | W.PN.HOSP.TC ---
Today's Communication/Plan
-
Observe off chest tube
Follow-up chest x-ray
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
Continue prednisone
Physical therapy assessment and discharge planning
Assessment / Plan
Assessment / Plan
Mr. Mckenzie is an 84-year-old male with a medical history of COPD (last PFT at [place] in February 2024 showed severe obstruction and moderately severe restriction), CAD (status post CABG x4 on 08/25/22), pericardial effusion (after CABG,
resolved after pericardiocentesis), chronic heart failure (unspecified type, appears to be preserved EF), xkb-uolxhil-mqghdncuo diabetes mellitus, recurrent left pleural effusion (with suspicion for trapped lung), and reported recent asymptomatic
arrhythmia (patient wore Holter monitor for a week, A-fib?, not on anticoagulation) who presents now with ongoing shortness of breath worse with exertion. He had a recent thoracentesis for recurrent left lower effusion on 10/15/2024. Repeat CT
imaging in the outpatient setting on 10/22 showed small to moderate left partially loculated pleural effusions with some concern for infection. He has no new symptoms other than his ongoing shortness of breath. Denies fevers, headaches,
palpitations, abdominal pain, nausea or vomiting. He was sent to the emergency department for further evaluation and management.
In the ED, he has remained hemodynamically stable. Remains afebrile and without leukocytosis. He is breathing comfortably and saturating appropriately on room air at rest. Labs are generally unremarkable. He has been admitted for treatment of
possible empyema.
Loculated left pleural effusions:
- Left pleural catheter placed by IR 10/24, pleural lysis not performed due to sanguinous output
- Started on Unasyn, pleural fluid cultures with no growth to date
- He has remained afebrile and without leukocytosis, low suspicion for infectious etiology at this point, low threshold to discontinue antibiotics
CT surgery input appreciated.
Plan is for conservative management and outpatient follow-up.
Chest tube removed on 10/29
Follow-up chest x-ray on 10/30
Bilateral knee arthritis. Acute onset.
Exam bilateral knees left greater than right with no edema or erythema. Limited range of motion left greater right.
X-ray of the left knee with no acute abnormalities
Uric acid within normal limits at 4.8
Status post bilateral arthrocentesis
Synovial fluid findings consistent with inflammatory process with positive CPPD crystals.
Initiated on prednisone 20 mg daily with significant improvement in the range of motion's
COPD:
- Currently without exacerbation
- Reportedly previous PFTs in February 2024 showed severe obstruction and moderately severe restriction
- Continue scheduled inhalers with additional as needed
Lower extremity neuropathy:
- Bilateral, never treated
- Suspect secondary to his diabetes
- Started on low-dose gabapentin with significant relief, will continue at discharge
NIDDM:
- On metformin 500 mg p.o. twice daily at home which we will continue
- Blood glucose fairly well-controlled, Hemoglobin A1c 6.5%
- Suspect his reported neuropathy is related to his diabetes, continue gabapentin
CAD:
- History of CABG x 4 on 08/25/2022, postoperative pericardial effusion status post pericardiocentesis
- Currently stable
- Will resume daily aspirin eventually after resolution of sanguinous pleural output, continue high intensity statin
CHF:
- Currently compensated
- Appears to be preserved ejection fraction per echocardiograms in chart
- Continue Lasix 40 mg p.o. every 48 hours which is his outpatient regimen
- Does not appear to be on a beta-alethea or afterload reduction
- Follows with Dr. Mariscal at [facility] cardiology
DVT prophylaxis: SCDs
CODE STATUS: Full code
Total time spent on today's encounter was 40 minutes
Anticipated Discharge: 24 - 48 hours
Subjective/Interval History
-
Date of Service: October 29, 2024
Objective Data
-
Vital Signs:
Vital Signs
Temp Pulse Resp BP Pulse Ox
97.8 F 88 16 109/67 97
10/29/24 07:00 10/29/24 07:28 10/29/24 07:28 10/29/24 07:00 10/29/24 07:00
I&O
10/28/24 10/29/24 10/30/24
06:59 06:59 06:59
Intake Total 960 / 960 1380 / 1380
Output Total 1300 / 1300 1150 / 1150
Balance -340 / -340 230 / 230
Physical Exam
-
General: Well Developed and No Apparent Distress
HEENT: Normocephalic, Atraumatic and Moist Mucous Membranes
Respiratory: Clear to Auscultation
Cardiac: Regular Rhythm and S1/S2; Negative Murmur, Rub or Gallop
GI: Soft, Nontender, Nondistended and Normal Bowel Sounds; Negative Organomegaly
Rectal: Deferred by Provider
Musculoskeletal: No Clubbing, No Cyanosis and No Edema
Skin: Negative Rash
Neuro: Nonfocal/Grossly Intact
[2024-10-29 15:41] VITALS: BP 113/59
[2024-10-29 15:45] VITALS: BP 103/52; PULSE 83; O2SAT 95
[2024-10-29] MEDS: LIPITOR 40 MG PO (17:21)
[2024-10-29 17:24] LABS: Glucose - Point of Care 226 mg/dl (70-99)
[2024-10-29] MEDS: NOVOLOG FLEXPEN-LOW RESISTANCE 2 UNITS SC (17:28)
[2024-10-29 21:28] LABS: Glucose - Point of Care 167 mg/dl (70-99)
[2024-10-29 23:41] VITALS: BP 107/60
[2024-10-30 06:00] VITALS: BMI 24.9
--- NOTE | 2024-10-30 07:24 | W.PN.UPDATE ---
Update Note
Progress Note Update
Rod is resting comfortably in bed this morning. He reports his knee pain is improving, though they continue to be somewhat uncomfortable. He attempted to walk yesterday, but was still unable to secondary to pain.
Directed exam of both knees reveal small effusion about both knees, improved from yesterday. No erythema, ecchymosis or lesions. No significant tenderness about the knees today. Mild discomfort with ROM, but improved from yesterday. NVID.
Aspiration results from left knee reveal 7410 WBC, 82.9 PMN. Positive for calcium pyrophosphate crystals. WBC seen on gram stain, no organisms seen. Culture pending.
Aspiration results from right knee reveal 56340 WBC, 90.7 PMN. No crystals seen. WBC seen on gram stain, no organisms seen. Culture pending.
Aspiration from Rod's left knee was positive for pseudogout. There were no crystals seen in his right knee, but his results are not concerning to me for septic joint at this point. Culture is pending. Continue treatment for pseudogout. He may
continue with gentle ROM as tolerated, and he may progress his weight bearing as tolerated. We appreciate the assistance of PT/OT. Orthopedics will follow peripherally for final culture results, but please reach out with any additional questions or
concerns.
[2024-10-30] MEDS: SPIRIVA RESPIMAT 2.5 MCG 2 PUFF INH (07:39)
[2024-10-30] MEDS: SYMBICORT 80/4.5 MCG INHALER 2 PUFF INH ×2 (07:39→19:30)
[2024-10-30 07:52] VITALS: BP 112/64
[2024-10-30] MEDS: DELTASONE 20 MG PO (08:12)
[2024-10-30] MEDS: VITAMIN B-12 1000 MCG PO (08:12)
[2024-10-30] MEDS: PROSCAR 5 MG PO (08:12)
[2024-10-30] MEDS: LASIX 40 MG PO (08:12)
[2024-10-30] MEDS: PROTONIX 20 MG PO (08:13)
[2024-10-30] MEDS: GLUCOPHAGE 500 MG PO ×2 (08:13→16:37)
[2024-10-30] MEDS: NEURONTIN 200 MG PO ×3 (08:13→21:35)
[2024-10-30] MEDS: HEPARIN 5000 UNITS SC ×2 (08:14→20:25)
[2024-10-30] MEDS: NOVOLOG FLEXPEN-LOW RESISTANCE SC (08:16)
[2024-10-30 08:17] LABS: Glucose - Point of Care 94 mg/dl (70-99)
--- NOTE | 2024-10-30 10:03 | W.PN.PUL3 ---
Today's Communication / Plan
-
- Chest tube removed, patient doing well
- Resume Trelegy at discharge
- Please assess for home oxygen need if any
- Pulmonary team will sign off, please call as needed
- Will arrange outpatient follow-up with [facility], Pulmonary Clinic
Assessment
-
Patient is a very pleasant 84-year-old gentleman who presents to emergency room after being referred from pulmonary clinic for concern of empyema. Patient had coronary artery bypass graft performed in 08/[address] scan from postop time showed a
trace right-sided and moderate left-sided pleural effusion. Over the last year patient has experienced increased exertional dyspnea and in [place] was noted to have left-sided pleural effusion and had a thoracentesis performed. Patient reports
about 800 mL of fluid was removed it led to significant discomfort and pain postprocedure requiring overnight stay. He transitioned his care to [place] and was seen at [facility] recently. Patient was sent for a follow-up thoracentesis for fluid
analysis and had about 900 mL bloody fluid removed on 10/15. Cytology and culture stayed negative. Patient had a follow-up CT scan after procedure which showed some air in the pleural space as well as loculated effusions with pleural thickening
concerning for infection. Patient was referred to emergency room for further evaluation. Pulmonary consultation was requested for further input.
Patient denies any fever, chills, cough or expectoration. Noted to have normal WBC count and afebrile along with hemodynamic stability.
#1. Complex loculated left-sided pleural effusion with pleural thickening, with chronically trapped lung
- S/p chest tube placement on 10/24, removed on 10/29
- Post chest tube placement, patient developed pneumothorax ex vacuo due to trapped lung
- Infectious workup stayed negative, antibiotics discontinued 10/28
- CT surgery service consulted, decortication was recommended, patient and family opted to pursue conservative management for now and follow-up with CT surgery services outpatient
- Anticipate follow-up imaging will continue to show pleural effusion on the left side, hold off additional thoracentesis unless patient develops symptoms with worsening effusion.
- Patient might have some degree of underlying trapped lung since 08/2022 when patient had CABG. Review of prior CT scan from 08/2022 suggests a trace right and moderate left-sided pleural effusion post CABG. Presence of pain after first
thoracentesis also points were possible lung entrapment
- Outpatient follow-up with pulmonary clinic, will sign off
#2. H/o COPD, severe obstruction with moderate diffusion deficit
- Patient quit smoking 35 years ago.
- Currently uses Trelegy at home with as needed albuterol. Patient reports rare use of albuterol since he has started Trelegy
- Resume Trelegy at discharge
#3. H/o CHF
- Clinically appears euvolemic, does not appear to to be decompensated
- BNP near normal
- Continue Lasix
#4. Dyspnea with exertion.
- Appears to be multifactorial due to underlying severe COPD, diffusion impairment, CHF, deconditioning.
- On review of his prior imaging from August [address] scan, I do not think the pleural effusion is the primary etiology of his shortness of breath.
Other medical diagnoses:
- CAD, s/p CABG (2022)
- NIDDM
- Neuropathy
- Bilateral knee pain and swelling, discussed with primary team, workup in progress. CPPD +.
Discussed with patient's .
Total time spent on this consultation/encounter __42__ minutes which includes review of history, physical exam, medications, laboratory data, personal review of imaging, extensive review of outpatient records, discussion with care team and
respiratory therapy.
Data:
CT Chest 10/2024: 1. Small right and frgct-rc-prlmyomm left partially loculated pleural effusions. As above, but show some adjacent mild soft tissue attenuation pleural thickening suggesting possible inflammatory process, including possible
empyema.
2. Small volume of gas within the aspect of the left pleural collection. There is also some adjacent increased attenuation. This could be related to small volume of gas and small amount of blood products related to recent thoracentesis. Infectious
etiology is also a consideration.
3. Bilateral compressive atelectasis. Near complete masslike atelectasis of the basal segments of the left lower lobe with appearance suggestive of rounded atelectasis.
4. Small amount of bilateral upper lobe fibrosis, nonspecific pattern.
5. Coronary and aortic atherosclerosis. Post coronary artery bypass.
ECHO 10/2024:
Normal biventricular size and systolic function without regional wall motion
abnormality. Estimated LVEF 60-65%.
Aortic sclerosis without stenosis.
Normal pericardium without effusion.
Pericardial drain for pericardial effusion, 09/2022:
[facility] 08/2022: 1: Normal left ventricular function with EF 62%
2: Triple-vessel CAD as described
3. Recommend evaluation for CABG with grafting of the LAD, D1, OM 3, RPL,+/- RPDA
4. We will add as needed sublingual nitroglycerin and the patient will restrict activities until revascularization has been accomplished
Subjective Data
-
Date of Service:
Date of Service: October 30, 2024
Subjective:
Patient comfortably sitting, in no acute distress, saturating well on room air
Review of Systems
Genitourinary: Other (All 14 systems reviewed and negative except as stated above in the history of present illness.)
Objective Data
Data Reviewed
Vital Signs / I&O / Oxygen:
Vital Signs
Temp Pulse Resp BP Pulse Ox
97.6 F 64 14 112/64 98
10/30/24 07:52 10/30/24 08:12 10/30/24 07:52 10/30/24 08:12 10/30/24 07:52
Intake and Output
10/29/24 10/30/24 10/31/24
06:59 06:59 06:59
Intake Total 1380 / 1380
Output Total 1150 / 1150 700 / 700
Balance 230 / 230 -700 / -700
SaO2 98
Physical Exam
General: Comfortable
HEENT: Normocephalic
Cardiovascular: S1-S2 and Other (Bilateral knee swelling, improved after arthrocentesis )
Respiratory: Clear
GI: Soft and Non Distended
Neurology: Awake and Alert
Skin: Warm
Labs/Micro/Reports
Lab Data
10/27/24 06:51
10/27/24 06:51
Microbiology
10/29/24 08:00 Knee - Right Gram Stain - Preliminary
10/29/24 08:00 Synovial Fluid Gram Stain - Preliminary
10/24/24 14:27 Pleural Fluid Fungal Smear - Preliminary
No yeast or fungal elements seen.
10/24/24 14:27 Pleural Fluid Fungal Culture - Preliminary
Culture in progress.
Positive cultures are reported as soon as detected.
Final report to follow in four to five weeks.
10/24/24 11:41 Blood/Venous Blood Culture - Final
No Growth - Final Report
10/24/24 08:51 Blood/Venous Blood Culture - Final
No Growth - Final Report
10/24/24 14:27 Pleural Fluid Acid Fast Bacilli Smear - Preliminary
10/24/24 14:27 Pleural Fluid Acid Fast Bacilli Culture - Preliminary
10/24/24 14:27 Pleural Fluid Body Fluid Culture - Final
No Growth After 72 Hours
10/24/24 14:27 Pleural Fluid Gram Stain - Final
[2024-10-30 11:38] LABS: Glucose - Point of Care 226 mg/dl (70-99)
[2024-10-30] MEDS: NOVOLOG FLEXPEN-LOW RESISTANCE 2 UNITS SC (12:18)
--- NOTE | 2024-10-30 12:31 | CM ---
Patient seen at bedside with
b/l knees aspirated yesterday
Patient is a new resident at [facility] unable to accept at their SNF ([facility]) since they have not been residents for 30 days
PT rec SNF
[facility]
would prefer for him home
PLAN: SNF vs. home, will continue to watch PT progress
--- NOTE | 2024-10-30 14:08 | W.PN.HOSP.TC ---
Today's Communication/Plan
-
Monitor respiratory status after chest tube removed
Bilateral pseudogout arthritis. Improving on prednisone.
PT assessment
Discharge planning according
Assessment / Plan
Assessment / Plan
Mr. Mckenzie is an 84-year-old male with a medical history of COPD (last PFT at [facility] in February 2024 showed severe obstruction and moderately severe restriction), CAD (status post CABG x4 on 08/25/22), pericardial effusion (after CABG,
resolved after pericardiocentesis), chronic heart failure (unspecified type, appears to be preserved EF), fmd-[id number]-[id number] diabetes mellitus, recurrent left pleural effusion (with suspicion for trapped lung), and reported recent asymptomatic
arrhythmia (patient wore Holter monitor for a week, A-fib?, not on anticoagulation) who presents now with ongoing shortness of breath worse with exertion. He had a recent thoracentesis for recurrent left lower effusion on 10/15/2024. Repeat CT
imaging in the outpatient setting on 10/22 showed small to moderate left partially loculated pleural effusions with some concern for infection. He has no new symptoms other than his ongoing shortness of breath. Denies fevers, headaches,
palpitations, abdominal pain, nausea or vomiting. He was sent to the emergency department for further evaluation and management.
In the ED, he has remained hemodynamically stable. Remains afebrile and without leukocytosis. He is breathing comfortably and saturating appropriately on room air at rest. Labs are generally unremarkable. He has been admitted for treatment of
possible empyema.
Loculated left pleural effusions:
- Left pleural catheter placed by IR 10/24, pleural lysis not performed due to sanguinous output
- Started on Unasyn, pleural fluid cultures with no growth to date
- He has remained afebrile and without leukocytosis, low suspicion for infectious etiology at this point, low threshold to discontinue antibiotics
CT surgery input appreciated.
Plan is for conservative management and outpatient follow-up.
Chest tube removed on 10/29
Follow-up chest x-ray on 10/30
Bilateral knee arthritis. Acute onset.
Exam bilateral knees left greater than right with no edema or erythema. Limited range of motion left greater right.
X-ray of the left knee with no acute abnormalities
Uric acid within normal limits at 4.8
Status post bilateral arthrocentesis
Synovial fluid findings consistent with inflammatory process with positive CPPD crystals. Cultures negative to date
Initiated on prednisone 20 mg daily with significant improvement in the range of motion's
COPD:
- Currently without exacerbation
- Reportedly previous PFTs in February 2024 showed severe obstruction and moderately severe restriction
- Continue scheduled inhalers with additional as needed
Lower extremity neuropathy:
- Bilateral, never treated
- Suspect secondary to his diabetes
- Started on low-dose gabapentin with significant relief, will continue at discharge
NIDDM:
- On metformin 500 mg p.o. twice daily at home which we will continue
- Blood glucose fairly well-controlled, Hemoglobin A1c 6.5%
- Suspect his reported neuropathy is related to his diabetes, continue gabapentin
CAD:
- History of CABG x 4 on 08/25/2022, postoperative pericardial effusion status post pericardiocentesis
- Currently stable
- Will resume daily aspirin eventually after resolution of sanguinous pleural output, continue high intensity statin
CHF:
- Currently compensated
- Appears to be preserved ejection fraction per echocardiograms in chart
- Continue Lasix 40 mg p.o. every 48 hours which is his outpatient regimen
- Does not appear to be on a beta-alethea or afterload reduction
- Follows with Dr. Mariscal at [facility] cardiology
DVT prophylaxis: SCDs
CODE STATUS: Full code
Total time spent on today's encounter was 40 minutes
Anticipated Discharge: 24 - 48 hours
Subjective/Interval History
-
Date of Service: October 30, 2024
Objective Data
-
Vital Signs:
Vital Signs
Temp Pulse Resp BP Pulse Ox
97.6 F 64 14 112/64 98
10/30/24 07:52 10/30/24 08:12 10/30/24 07:52 10/30/24 08:12 10/30/24 07:52
I&O
10/29/24 10/30/24 10/31/24
06:59 06:59 06:59
Intake Total 1380 / 1380
Output Total 1150 / 1150 700 / 700
Balance 230 / 230 -700 / -700
Physical Exam
-
General: Well Developed and No Apparent Distress
HEENT: Normocephalic, Atraumatic and Moist Mucous Membranes
Respiratory: Clear to Auscultation
Cardiac: Regular Rhythm and S1/S2; Negative Murmur, Rub or Gallop
GI: Soft, Nontender, Nondistended and Normal Bowel Sounds; Negative Organomegaly
Rectal: Deferred by Provider
Musculoskeletal: No Clubbing, No Cyanosis and No Edema
Skin: Negative Rash
Neuro: Nonfocal/Grossly Intact
[2024-10-30 15:22] VITALS: BP 115/64
[2024-10-30 16:38] LABS: Glucose - Point of Care 277 mg/dl (70-99)
[2024-10-30] MEDS: LIPITOR 40 MG PO (17:13)
[2024-10-30] MEDS: NOVOLOG FLEXPEN-LOW RESISTANCE 3 UNITS SC (17:33)
[2024-10-30 21:40] LABS: Glucose - Point of Care 146 mg/dl (70-99)
[2024-10-30 23:02] VITALS: BP 108/58
--- NOTE | 2024-10-31 05:56 | W.PN.UPDATE ---
Update Note
Progress Note Update
Chart reviewed- cultures continue NGTD- ortho surg will continue to follow peripherally to monitor cultures.
[2024-10-31 06:00] VITALS: BMI 25.0
[2024-10-31] MEDS: GLUCOPHAGE 500 MG PO (07:36)
[2024-10-31] MEDS: HEPARIN 5000 UNITS SC (07:36)
[2024-10-31] MEDS: PROSCAR 5 MG PO (07:36)
[2024-10-31] MEDS: VITAMIN B-12 1000 MCG PO (07:36)
[2024-10-31] MEDS: NEURONTIN 200 MG PO (07:36)
[2024-10-31] MEDS: DELTASONE 20 MG PO (07:36)
[2024-10-31] MEDS: PROTONIX 20 MG PO (07:36)
[2024-10-31] MEDS: SYMBICORT 80/4.5 MCG INHALER 2 PUFF INH (07:38)
[2024-10-31] MEDS: SPIRIVA RESPIMAT 2.5 MCG 2 PUFF INH (07:38)
[2024-10-31 08:01] LABS: Glucose - Point of Care 108 mg/dl (70-99)
[2024-10-31] MEDS: NOVOLOG FLEXPEN-LOW RESISTANCE SC (08:09)
[2024-10-31 08:11] VITALS: BP 133/73
[2024-10-31 11:56] LABS: Glucose - Point of Care 179 mg/dl (70-99)
[2024-10-31 12:30] VITALS: BP 118/63; BP 95/48; PULSE 75; O2SAT 97
[2024-10-31] MEDS: NOVOLOG FLEXPEN-LOW RESISTANCE 1 UNITS SC (12:53)
--- NOTE | 2024-10-31 13:09 | CM ---
Addendum entered by Estefani Ghotra 10/31/24 14:09:
[facility]

Original Note:
Patient reassessed by PT and OT today; Met with patient and at bedside; explained that Home Health/VN/PT/OT recommended when discharged
Patient and agreeable with plan; referral sent to [facility] via [facility]
Plan: Discharge to home @ [facility] with Home Health services when medically stable for discharge
[2024-10-31 15:02] VITALS: BP 127/71
--- NOTE | 2024-11-03 11:30 | W.DS.TRANS ---
DC Summary - Bi[employer] Facilitator
-
Discharge Instructions:
Discharge Diagnosis/Procedures Loculated left pleural effusion without evidence
of infection.
Pseudogout/bilateral knee arthritis
COPD without exacerbation.
Neuropathy.
Type 2 diabetes
CAD.
Chronic CHF preserved EF
Diet Diabetic, Carb Controlled
Instructions:
Stand-Alone Forms:
Changes to Home Medications: Yes
Discharge Medications:
DC Medications w/original date entered in [employer]
finasteride 5 mg tablet 5 mg PO DAILY Urinary issue #30 tabs 09/01/22
aspirin 81 mg tablet,delayed release 81 mg PO DAILY Blood Clot Prevention/Tx 10/15/24
cyanocobalamin (vitamin B-12) 1,000 mcg tablet (Vitamin B-12) 1,000 mcg PO DAILY Supplement 10/15/24
fluticasone fur. 100 mcg-umeclid 62.5 mcg-vilant 25 mcg inhalat.powder (Trelegy Ellipta) 1 inh inhalation R DAILY Lung/Breathing Issues 10/15/24
atorvastatin 40 mg tablet 40 mg PO QPM High Cholesterol 10/24/24
furosemide 40 mg tablet 40 mg PO Q48H Fluid Retention/Swelling 10/24/24
metformin 500 mg tablet 500 mg PO BID@0800,1700 Diabetes 10/24/24
pantoprazole 20 mg tablet,delayed release 20 mg PO DAILY #30 tabs 10/31/24
prednisone 10 mg tablet 10 mg PO DIRECTED #9 tabs 10/31/24
Home Medication Changes
Prednisone taper and PPI added
Pending Results: No
== END 2024-10-31 15:28 | disposition home health service (06) | DRG 186 ==
LOC: 3 WEST ACU 12:03
PROVIDERS: Physician Assistant; Radiology Diagnostic Radiology; ADMITTING PHYSICIAN Internal Medicine; ATTENDING PHYSICIAN Internal Medicine; CONSULT PHYSICIAN Internal Medicine; CONSULT PHYSICIAN Orthopaedic Surgery Hand Surgery; EMERGENCY PHYSICIAN Emergency Medicine; FAMILY PHYSICIAN Internal Medicine; OTHER PHYSICIAN Thoracic Surgery (Cardiothoracic Vascular Surgery)
PROC: 0W9B30Z Drainage of Left Pleural Cavity with Drainage Device, Percutaneous Approach (ICD-10-PCS; 2024-10-24)
DX: J90 Pleural effusion, not elsewhere classified (principal); J86.9 Pyothorax without fistula; I50.32 Chronic diastolic (congestive) heart failure; I11.0 Hypertensive heart disease with heart failure; Z87.891 Personal history of nicotine dependence; J44.9 Chronic obstructive pulmonary disease, unspecified; G57.90 Unspecified mononeuropathy of unspecified lower limb; E11.41 Type 2 diabetes mellitus with diabetic mononeuropathy; Z79.84 Long term (current) use of oral hypoglycemic drugs; I25.10 Atherosclerotic heart disease of native coronary artery without angina pectoris; Z79.82 Long term (current) use of aspirin; M11.261 Other chondrocalcinosis, right knee; M11.262 Other chondrocalcinosis, left knee
CPT/HCPCS: 88305; 32557; 71045; 71250; 73564; 80048; 80053; 82945; 82962; 83036; 83605; 83615; 83880; 83986; 84157; 84550; 85025; 85652; 86850; 86900; 86901; 87015; 87040; 87070; 87102; 87116; 87205; 87206; 88112; 89051; 89060; 94640; 97116; 97162; 97166; 97530; 97535; 99152; 99285; C1729; C1769; J2997

== ENCOUNTER → 2024-12-10 10:40 | Outpatient (REF) | payer MEDICARE, BC, SELFPAY | LOC: RAD 10:40 | PROVIDERS: ATTENDING PHYSICIAN Internal Medicine; FAMILY PHYSICIAN Internal Medicine | DX: J86.9 Pyothorax without fistula (principal) | CPT/HCPCS: 71046 ==

== ENCOUNTER → 2024-12-12 13:24 | Outpatient (REF) | payer MEDICARE, BC, SELFPAY ==
[2024-12-12 13:35] VITALS: BP 108/58; BP_SYST 114
[2024-12-12 14:30] VITALS: BP 104/64
[2024-12-12 16:22] LABS: Body Fluid Second Tech BGK
== END ==
LOC: RADI 13:24
PROVIDERS: ATTENDING PHYSICIAN Internal Medicine; FAMILY PHYSICIAN Internal Medicine
DX: J90 Pleural effusion, not elsewhere classified (principal); R06.02 Shortness of breath
CPT/HCPCS: 32555; 71045; 82945; 83615; 84157; 87015; 87070; 87102; 87116; 87205; 87206; 88112; 88305; 89051

== ENCOUNTER 2025-01-02 16:00 | Emergency (ER) | payer MEDICARE, BC, SELFPAY ==
[2025-01-02 16:04] VITALS: BP 120/85
[2025-01-02 16:30] LABS: Hematocrit 41.4 % (39.0-52.0); Hemoglobin 13.5 g/dL (13.0-18.0); Mean Corp Hgb Conc. 32.6 g/dL (33.0-37.0); Mean Corpuscular Volume 85.9 fL (80.0-94.0); Nucleated Red Blood Cells % 0 % (-); Platelet Count 415 10^3/uL (130-400); Red Cell Dist. Width 16.2 % (11.5-14.5)
[2025-01-02 16:50] LABS: ALT (SGPT) 16 U/L (0-50); AST (SGOT) 19 U/L (17-59); Albumin 4.4 g/dl (3.5-5.0); Alkaline Phosphatase 99 U/L (38-126); Blood Urea Nitrogen 19 mg/dl (9-20); Calcium 9.1 mg/dl (8.4-10.2); Carbon Dioxide 30 mmol/L (22-30); Chloride 99 mmol/L (98-107); Glucose 118 mg/dl (70-99); Potassium 5.0 mmol/L (3.5-5.1); Sodium 135 mmol/L (135-145); Total Protein 8.4 g/dl (6.3-8.2); eGFR > 60.00
[2025-01-02 17:01] LABS: Troponin I 0.016 ng/ml
[2025-01-02 19:28] VITALS: BP 125/74
[2025-01-02 19:38] VITALS: BMI 26.0
--- NOTE | 2025-01-02 20:52 | ED.GENMED ---
History of Present Illness
General
Chief Complaint: Breathing Problem
Source: patient and family
Time Seen by Provider: 01/02/25 19:26
History of Present Illness
History of Present Illness:
Note:
CHIEF COMPLAINT(S)
Shortness of breath.
HISTORY OF PRESENT ILLNESS
The patient is an 84-year-old male with a chief complaint of shortness of breath. He reports that this has been a persistent problem, which began several months ago. He is currently under the care of a house mover supervisor, Dr. Wright, who noted a decrease
in pulmonary function to 30% based on recent tests performed during the last visit. The patient describes that his breathing has been worsening since, but he did not feel acutely worse today until advised by his doctor to seek emergency evaluation.
He has been previously evaluated for fluid in the lungs and has undergone a chest X-ray. Pulmonary rehabilitation has been recommended, and paperwork is in process for this.
The patient reports using a maintenance inhaler, Reliji, and albuterol via nebulizer for breakthrough symptoms. He denies a recent increase in shortness of breath before being sent to the emergency department. He describes the left lung as more
compromised, with diminished breath sounds confirmed during examination.
PHYSICAL EXAM
General: Alert, no acute distress.
Skin: Warm, dry.
Head: Normocephalic, atraumatic.
Neck: Supple, trachea midline.
Eye Ears, Nose, Mouth and Throat: Oral mucosa moist.
Cardiovascular: Normal peripheral perfusion, no edema, non-jugular venous distension.
Respiratory: Diminished breath sounds on the left side at the base. No wheezing while at rest.
Gastrointestinal: Abdomen nondistended.
Back: Normal range of motion, normal alignment.
Musculoskeletal: Normal range of motion, normal strength. no edema
Neurological: Alert and oriented to person, place, time, and situation, no focal neurological deficit observed.
Psychiatric: Cooperative, appropriate mood and affect.
PLAN
The plan is to perform a chest X-ray to assess current lung status and compare it with previous results. The aim is to evaluate for any changes since the last evaluation by the house mover supervisor and to determine the next steps based on findings.
DIFFERENTIAL DIAGNOSIS
The Differential Diagnosis includes, in no particular order and is not limited to:
1. Chronic Obstructive Pulmonary Disease
2. Congestive Heart Failure
3. Pneumonia
4. Pulmonary Fibrosis
5. Pulmonary Edema
6. Pleural Effusion
7. Pulmonary Embolism
8. Asthma
9. Interstitial Lung Disease
10. Bronchitis
CARE-UPDATE
01/02/25 - :[address] Albert, the house mover supervisor, and agreed to monitor the patient closely at home over the holiday weekend due to stable vitals (oxygen saturation at 96%, heart rate at 90, good respiratory rate, and stable blood pressure). No immediate
emergency indicated for hospital stay. Advised patient to return immediately if significant worsening of shortness of breath occurs. Continuation of nebulizer treatments at home recommended. Arrangements for outpatient visit with Dr. Wright have been
made for post-weekend assessment. Emphasized the importance of avoiding infection risks and maintaining stable condition.
EKG
My independent EKG interpretation is:
- Rhythm: Sinus tachycardia with premature atrial complexes
- Heart rate: 103 beats per minute
- Neal: Normal
- Abnormalities: No acute ischemic changes
Disposition:
SUMMARY OF ENCOUNTER
The patient, an 84-year-old male, was seen in the emergency department primarily at the request of his primary care doctor for further evaluation. He does not present with new complaints but is here due to a previously noted deterioration in
pulmonary function and recent lab and imaging results. A chest X-ray reviewed shows bilateral pleural effusions and a left-sided hydropneumothorax. These effusions appear slightly progressive compared to prior images. Lab results indicate a white
blood cell count of 11,000, normal hemoglobin at 13, normal prothrombin time (PT), and a BNP of 379. Based on these findings and given that the patient is asymptomatic, a discussion with house mover supervisor Dr. Wright concluded that outpatient management is
reasonable.
DISPOSITION
Discharge.
ASSESSMENT
The patient has bilateral pleural effusions with a left-sided hydropneumothorax, slightly progressive from prior imaging, without acute symptoms currently presented.
MANAGEMENT OF THE PATIENTS CARE WAS DISCUSSED WITH
Consultation with house mover supervisor Dr. Wright was conducted, who reviewed the chest X-ray and concurred with the plan for outpatient management due to the asymptomatic nature of the findings.
PLAN
The plan is for the patient to be managed as an outpatient with close follow-up. He is to return immediately if there is any progression of symptoms. Arrangements have been made for follow-up with pulmonology on Sunday.
INDEPENDENT REVIEW OF LABS AND INTERPRETATION OF TESTS
- My independent review of CBC is a white blood cell count of 11,000 and normal hemoglobin at 13.
- My independent review of basic metabolic panel (BMP) is BNP of 379.
- My independent interpretation of the chest X-ray shows bilateral pleural effusions and a left-sided hydropneumothorax, with effusions appearing slightly progressive compared to prior images.
PATIENT EDUCATION AND COUNSELING
The patient and his daughter were involved in shared decision-making, ensuring they understood the plan for outpatient management and the importance of follow-up. They are comfortable with monitoring symptoms and seeking immediate care if there are
any changes.
FOLLOW-UP INSTRUCTIONS
The patient should follow up with pulmonology on Sunday, as arranged. He has been advised to return to the hospital immediately if he experiences any progression of symptoms.
MEDICATION RECONCILIATION
1. Continue using the maintenance inhaler and albuterol via nebulizer as previously prescribed for pulmonary management.
MEDICAL DECISION MAKING
- Number and Complexity of Problems Addressed: Chronic conditions affecting care include pleural effusions and decreased pulmonary function. Differential diagnoses considered include chronic obstructive pulmonary disease, pulmonary edema, and
pleural effusion.
- Data:
Category 1:
- My independent interpretation of the chest X-ray shows bilateral pleural effusions and a left-sided hydropneumothorax.
- My independent review of CBC and BMP includes a white blood cell count of 11,000 and BNP of 379.
Category 3:
- Discussion of management with Dr. Wright, house mover supervisor.
- Risk:
Consideration of Admission/Observation: Escalation of care including admission/observation was considered given the complexity and risk of the patients presenting complaint, exam findings, and underlying comorbidities. However, ultimately I feel the
patient is safe for outpatient management with close follow-up. Reasoning: Work-up reassuring, does not reveal any acute life/organ-threatening processes, patients symptoms well controlled upon reevaluation, reexamination is reassuring, vitals are
stable, patient agreeable with discharge, reliable for follow-up.
DIAGNOSIS
- Bilateral Pleural Effusion (ICD-10: J90)
- Left-sided Hydropneumothorax (ICD-10: J93.9)
Past History
Past History
ED Past Medical History: Arrthythmia, CAD, HTN, Hypercholesterolemia and NIDDM
ED Past Surgical History: Cardiac
Phy Exam
Physical Exam
Physical Exam:
.
Scores
Heart Failure Risk
Heart Failure Risk Score: Not Applicable
Course
Orders/Labs/Results
Orders:
Orders
01/02/25 16:14
Electrocardiogram (*1) Urgent
Reason for Study: Shortness of Breath
EKG- Treatment ONCE
CXR2 [CR Chest - 2 Views ] Urgent
Comment:
Reason For Exam: sob
01/02/25 16:25
Complete Blood Count/With Diff Urgent
Comprehensive Metabolic Panel Urgent
NT-proBNP Urgent
Troponin I Urgent
Abnormal Lab Results
01/02/25
16:25
WBC 11.6 H 10^3/uL
(4.8-10.8)
MCHC 32.6 L g/dL
(33.0-37.0)
RDW 16.2 H %
(11.5-14.5)
Plt Count 415 H 10^3/uL
(130-400)
Abs Immat Gran (auto) 0.1 H 10^3/uL
(0-0.05)
Absolute Neuts (auto) 8.1 H 10^3/uL
(1.4-6.5)
Absolute Monos (auto) 1.0 H 10^3/uL
(0.1-0.6)
Immature Gran % 0.6 H %
(0-0.5)
Lymphocytes % 18.8 L %
(20.5-51.1)
Glucose 118 H mg/dl
(70-99)
Total Protein 8.4 H g/dl
(6.3-8.2)
01/02/25 16:25
01/02/25 16:25
Vital Signs
Initial and Last Documented VS:
Initial Vital Signs
Temp Pulse Resp BP Pulse Ox
98.0 F 101 16 120/85 98
01/02/25 16:04 01/02/25 16:04 01/02/25 16:04 01/02/25 16:04 01/02/25 16:04
Last Documented Vital Signs
Temp Pulse Resp BP Pulse Ox
98.0 F 102 18 125/74 96
01/02/25 16:04 01/02/25 19:30 01/02/25 19:38 01/02/25 19:28 01/02/25 20:56
*Pulse Oximetry
SaO2: 96
Oxygen Mode of Delivery: Room air
Patient hypoxic: no
*Critical Care Note
Total Time (30-74mins, 75-104mins- exclusive of procedures): Not Applicable
ED Attending Note
-
Portions of this chart may have been created with voice recognition software.� Occasional wrong word or��sound alike� substitutions may have occurred due to the inherent limitations of voice recognition software.
Discharge Plan
Departure
Patient Disposition: Home (Routine Discharge)
Date of Disposition: 01/02/25
Time of Disposition: 20:52
Patient with high blood pressure during this ER visit?: No
Discharge Problem:
Hydropneumothorax, Trapped lung, Bilateral pleural effusion
Instructions: Shortness of Breath (Dyspnea) (DC), Pleural effusion (DC)
Prescriptions:
No Action
finasteride 5 mg Tablet
5 mg PO DAILY Qty: 30 0RF
aspirin 81 mg Tablet,Delayed Release (Dr/Ec)
81 mg PO DAILY
cyanocobalamin (vitamin B-12) [Vitamin B-12] 1,000 mcg Tablet
1,000 mcg PO DAILY
Trelegy Ellipta 100-62.5-25 mcg Blister With Device
1 inh INHALATION R DAILY
metformin 500 mg tablet
500 mg PO BID@0800,1700
furosemide 40 mg tablet
40 mg PO Q48H
atorvastatin 40 mg tablet
40 mg PO QPM
pantoprazole 20 mg Tablet,Delayed Release (Dr/Ec)
20 mg PO DAILY Qty: 30 0RF
prednisone 10 mg tablet
10 mg PO DIRECTED Qty: 9 0RF
Rx Instructions:
start with 20 mg for 3 days, 10mg for 3 days
Referrals:
Linn Walsh DO [Family Provider, Internal Medicine]
Activity Restrictions/Additional Instructions:
Please see your house mover supervisor on Sunday as advised. Return immediately for any progression of your shortness of breath, fevers, chest pain, leg swelling, worsening of any symptoms or any other concerns. Continue your current nebulizer treatments
as well as your inhalers.
Interventions
Interventions:
*Risk Screen - Suicide Last Done: 01/02/25 16:04
*General Assessment Last Done: 01/02/25 21:06
*Neglect/Abuse Screening Last Done: 01/02/25 16:04
*ED- Fall Risk Assessment Last Done: 01/02/25 21:06
*ED COVID-19 Vaccine History Last Done: 01/02/25 21:06
*Nursing Disposition Last Done: 01/02/25 21:06
ED- Cardiac Assessment Last Done: 01/02/25 20:09
ED- Pulmonary Assessment Last Done: 01/02/25 20:09
Discharge Date and Time
Discharge Date/Time: 01/02/25 21:07
Print Language: INDIAN
== END 2025-01-02 21:07 | disposition home or self-care (01) ==
LOC: EMR 16:00
PROVIDERS: Emergency Medicine; EMERGENCY PHYSICIAN Emergency Medicine; FAMILY PHYSICIAN Internal Medicine
DX: J94.8 Other specified pleural conditions (principal); J90 Pleural effusion, not elsewhere classified; E11.9 Type 2 diabetes mellitus without complications; E78.00 Pure hypercholesterolemia, unspecified; I10 Essential (primary) hypertension; R00.0 Tachycardia, unspecified; I25.10 Atherosclerotic heart disease of native coronary artery without angina pectoris; Z79.84 Long term (current) use of oral hypoglycemic drugs
CPT/HCPCS: 99285; 71046; 80053; 83880; 84484; 85025; 93005

== ENCOUNTER → 2025-02-10 10:25 | Outpatient (REF) | payer MEDICARE, BC, SELFPAY ==
[2025-02-10 13:56] VITALS: BP 114/89; BP_SYST 110
[2025-02-10 14:33] VITALS: BP 138/90; BP_SYST 119
[2025-02-10 16:18] LABS: Body Fluid Second Tech HB
== END ==
LOC: RADI 10:25
PROVIDERS: ATTENDING PHYSICIAN Internal Medicine; FAMILY PHYSICIAN Internal Medicine
DX: J90 Pleural effusion, not elsewhere classified (principal); J94.8 Other specified pleural conditions
CPT/HCPCS: 32555; 71045; 71046; 82945; 83615; 84157; 87015; 87070; 87102; 87116; 87205; 87206; 88112; 88305; 89051; G0237

== ENCOUNTER → 2025-02-11 12:30 | Outpatient (REF) | payer MEDICARE, BC, SELFPAY ==
[2025-02-11 12:35] VITALS: BP 116/83; BP_SYST 106
[2025-02-11 13:45] VITALS: BP 117/93
== END ==
LOC: RADI 12:30
PROVIDERS: ATTENDING PHYSICIAN Nurse Practitioner Family; FAMILY PHYSICIAN Internal Medicine
DX: J90 Pleural effusion, not elsewhere classified (principal)
CPT/HCPCS: 32555; 71045